=== PATIENT | female | born 1965 | race Caucasian/White ===

== ENCOUNTER 2020-01-03 07:15 | Outpatient (CLI) | payer OTHER, SELFPAY ==
--- NOTE | ~2020-01-03 | MM_ITS ---
EXAMINATION: MM screening [facility] BI w marianne HISTORY: Screening mammogram TECHNIQUE: Craniocaudal and mediolateral oblique 3-D tomosynthesis images were obtained and synthetic 2-D images were generated. Bilateral rotated lateral cc views. .CAD analysis was submitted and inter preted. COMPARISON: 12/28/2018, 11/24/2017, 11/11/2016 bilateral digital screening mammogram examinations BREAST PARENCHYMAL COMPOSITION: There are scattered areas of fibroglandular density. FINDINGS: There is no evidence of suspicious mass, calcification, or architectural distortion to sugg est malignancy in either breast. There has been no suspicious interval change. IMPRESSION: 1. No mammographic evidence of malignancy. 2. Recommend routine screening mammography in one year. BI-RADS Category 1: Negative Reviewed, dictated and finalized at location A.
== END 2020-01-03 07:16 | disposition home or self-care (01) ==
LOC: ANHIMG 07:20
PROVIDERS: PCP Family Medicine; Visit Provider Student in an Organized Health Care Education/Training Program
DX: Z12.31 Encounter for screening mammogram for malignant neoplasm of breast (principal)
CPT/HCPCS: 77063; 77067

== ENCOUNTER 2020-02-01 10:51 | Outpatient (CLI) | payer OTHER, SELFPAY ==
[2020-02-01 11:25] LABS: Basophils Percent Auto 0.6 % (0.2-1.2); Eosinophils Absolute Auto 0.1 K/mm3 (0-0.3); Eosinophils Percent Auto 1.6 % (0-4.4); Hematocrit 38.8 % (37.0-47.0); Immature Granulocyte Absolute 0.01 K/mm3 (0.00-0.031); Immature Granulocyte Percent A 0.2 % (0-0.5); Lymphocytes Absolute Auto 1.99 K/mm3 (0.9-3.2); Lymphocytes Percent Auto 39.9 % (18.3-44.2); Mean Corpuscular HGB Conc 33.5 g/dl (32-36); Mean Corpuscular Hemoglobin 32.2 pg (26-34); Mean Platelet Volume 10.1 fl (7.4-10.4); Monocytes Absolute Auto 0.4 K/mm3 (0.1-0.6); Neutrophils Absolute Auto 2.5 K/mm3 (1.3-6.7); Neutrophils Percent Auto 50.7 % (45.5-73.1); Platelet Count Result 232 k/mm3 (150-375); Red Blood Count 4.04 M/mm3 (4.2-5.4)
[2020-02-01 11:36] LABS: Alanine Aminotransferase 18 U/L (4-35); Albumin Level 4.3 g/dL (3.5-5.1); Alkaline Phosphatase 68 U/L (38-126); Aspartate Amino Transferase 23 U/L (14-36); Bilirubin,Total 0.3 mg/dL (0.2-1.3); Blood Urea Nitrogen 13 mg/dL (7-17); Calcium 9.1 mg/dL (8.4-10.2); Carbon Dioxide 25 mmol/L (22-30); Chloride 108 mmol/L (98-107); Estimated Glomerular Filt Rate > 60; Glucose 119 mg/dL (65-105); Sodium 141 mmol/L (137-145)
[2020-02-01 11:49] LABS: Iron 83 ug/dL (37-170)
[2020-02-01 11:58] LABS: Percent Iron Saturation 27 % (20-50)
== END 2020-02-01 10:52 | disposition home or self-care (01) ==
LOC: ANHLAB 10:53
PROVIDERS: Visit Provider Internal Medicine Hematology & Oncology
DX: E83.110 Hereditary hemochromatosis (principal)
CPT/HCPCS: 36415; 80053; 82728; 83540; 83550; 85025

== ENCOUNTER 2020-06-26 14:45 | Outpatient (CLI) | payer OTHER, SELFPAY ==
--- NOTE | ~2020-06-26 | CT_ITS ---
EXAMINATION: CT soft tissue neck w con DATE: 06/26/2020 15:23 INDICATION: Calculus of tonsil. TECHNIQUE: Computed tomography (CT) of the neck was performed with 75 mL Omnipaque-350 intravenous co ntrast. Automated exposure control and iterative reconstruction technique were employed. The dose-daya gth product was 469.26 mGy-cm. COMPARISON: None FINDINGS: There are no pathologically enlarged lymph nodes. There is a 3 mm nodule in right thyroid l obe, likely not clinically significant. There is no visible plaque in the proximal internal carotid a rteries. There are mucous retention cysts in the maxillary sinuses. The adenoids and palatine and ruthann gual tonsils are normal. No tonsillar calcifications. The major salivary glands are normal. No sialol ith. There is moderate stenosis of proximal left subclavian artery. There is mild thoracic spondylosi s. IMPRESSION: 1. No tonsillar calcification. 2. Moderate stenosis of proximal left subclavian artery, which may be a cause of subclavian steal syn drome. Reviewed, dictated and finalized at location A. ESS ENGINEER IMPRESSION: 1. No tonsillar calcification. 2. Moderate stenosis of proximal left subclavian artery, which may be a cause o f subclavian steal syndrome.
== END 2020-06-26 14:46 | disposition home or self-care (01) ==
LOC: ANHIMG 14:53
PROVIDERS: PCP Family Medicine; Visit Provider Otolaryngology
DX: J39.2 Other diseases of pharynx (principal); M47.814 Spondylosis without myelopathy or radiculopathy, thoracic region; J34.1 Cyst and mucocele of nose and nasal sinus; E04.1 Nontoxic single thyroid nodule; I77.1 Stricture of artery
CPT/HCPCS: 70491; Q9967

== ENCOUNTER → 2020-07-20 17:04 | Outpatient (CLI) | payer OTHER, SELFPAY ==
--- NOTE | ~2020-07-20 | XR_ITS ---
EXAMINATION: XR shoulder RT min 2V INDICATION: Right shoulder pain TECHNIQUE: Four views of the right shoulder are submitted. COMPARISON: None FINDINGS: Normal alignment. No fracture. There is mild glenohumeral and acromioclavicular joint osteo arthritis. Soft tissues are unremarkable. IMPRESSION: 1. No acute osseous abnormality. Reviewed, dictated and finalized at location A. LIANCE REPRESENTATIVE
== END ==
PROVIDERS: PCP Family Medicine; Visit Provider Nurse Practitioner Family
DX: M19.011 Primary osteoarthritis, right shoulder (principal)
CPT/HCPCS: 73030

== ENCOUNTER 2020-07-31 13:34 | Outpatient (CLI) | payer OTHER, SELFPAY ==
--- NOTE | ~2020-07-31 | US_ITS ---
EXAMINATION: US carotid duplex BI DATE: 07/31/2020 15:23 INDICATION: Left subclavian artery stenosis. TECHNIQUE: Grayscale, color Doppler, and pulsed Doppler images of the cervical carotid arteries were obtained. The degree of vessel stenosis is placed in one of the following categories: normal, <50%, 5 0-69%, >=70% but less than near-occlusion, near-occlusion, or total occlusion. Note that percent sten osis relative to normal distal artery lumen diameter is indirectly measured from velocity measurement s as described by James, et al. Radiology 2003; 229:340-346. COMPARISON: CT neck 06/26/2020 FINDINGS: RIGHT: The right common carotid artery (CCA) peak systolic velocity (PSV) is 96 cm/s. The right internal car otid artery (ICA) PSV is 92 cm/s. The right ICA end-diastolic velocity (EDV) is 35 cm/s. The right IC A/CCA PSV ratio is 1.0. Grayscale and color Doppler images yield an estimate of <50% diameter reducti on from plaque in the ICA. There is antegrade flow in the right vertebral artery. LEFT: The left CCA PSV is 69 cm/s. The left ICA PSV is 115 cm/s. The left ICA EDV is 44 cm/s. The left ICA/ CCA PSV ratio is 1.7. Grayscale and color Doppler images yield an estimate of <50% diameter reduction from plaque in the ICA. There is antegrade flow in the left vertebral artery. IMPRESSION: 1. <50% stenosis in the right internal carotid artery. 2. <50% stenosis in the left internal carotid artery. 3. Antegrade flow in the vertebral arteries. Reviewed, dictated and finalized at location A. MILL SUPERVISOR
--- NOTE | 2020-07-31 13:54 | ECHO_ITS ---
Patient Info Name: Ellen Mayes Age: 55 years : 1965 Gender: Female Ht: 65 in Wt: 143 lbs BSA: 1.73 m2 HR: 75 bpm BP: 143 / 90 mmHg Technical Quality: Good Exam Date: 07/31/2020 2:11 PM Exam Location: [facility] Patient Status: Outpatient Admit Date: 07/31/2020 Staff Ordering Physician: Merced Trejo Agronomy Advisor: Lisa Cash RDCS Attending Provider: Merced Trejo Referring Physician: Maya HACKETT; Exam Type: CA echo doppler color flow Study Info Indications - STRICTURE OF ARTERY Complete two-dimensional, color flow and Doppler transthoracic echocardiogram is performed. Summary 1. Complete two-dimensional, color flow and Doppler transthoracic echocardiogram is performed. 2. Left ventricular chamber dimension is normal. 3. Left ventricular systolic function is normal, estimated at 65-70%. 4. The left ventricular diastolic function is grade I diastolic dysfunction. 5. E/e' 9 is minimally elevated. 6. Left atrial chamber dimension is mildly enlarged. 7. There is trace mitral valve regurgitation. 8. There is trace tricuspid valve regurgitation. 9. No pulmonary hypertension, estimated pulmonary arterial systolic pressure is 26 mmHg. 10. There is trace pulmonic regurgitation. Left Ventricle E/e' 9 is minimally elevated. Left ventricular chamber dimension is normal. Left ventricular systolic function is normal, estimated at 65-70%. The left ventricular diastolic function is grade I diastolic dysfunction. Right Ventricle Right ventricular chamber dimension is normal. Right ventricular systolic function is normal. Left Atria Left atrial chamber dimension is mildly enlarged. Right Atria Right atrial chamber dimension is normal. Aortic Valve The aortic valve is trileaflet. There is no aortic valve stenosis. There is no aortic valve regurgitation. Pulmonic Valve There is trace pulmonic regurgitation. Mitral Valve There is no mitral valve stenosis. There is trace mitral valve regurgitation. Tricuspid Valve There is trace tricuspid valve regurgitation. No pulmonary hypertension, estimated pulmonary arterial systolic pressure is 26 mmHg. Pericardium/Pleural There is no pericardial effusion. Inferior Vena Cava Normal inferior vena cava with >50% collapse upon inspiration consistent with normal right atrial pressure, 5 mmHg. Aorta The aortic root size at the sinus of Valsalva is normal. Left Ventricular Outflow Tract Name Value Normal LVOT 2D LVOT Diameter 2.0 cm LVOT Doppler LVOT Peak Gradient 6 mmHg LVOT Mean Gradient 3 mmHg LVOT VTI 24 cm LVOT VTI/AV VTI Ratio 1.0 LVOT Stroke Volume 75 ml LVOT CO 14.9 l/min LVOT CI 8.6 l/min/m2 Pulmonic Valve Name Value Normal
== END 2020-07-31 13:35 | disposition home or self-care (01) ==
LOC: ANHCARD 13:35
PROVIDERS: PCP Family Medicine; Visit Provider Nurse Practitioner Family
DX: I77.1 Stricture of artery (principal); E78.1 Pure hyperglyceridemia; I65.23 Occlusion and stenosis of bilateral carotid arteries
CPT/HCPCS: 93306; 93880

== ENCOUNTER → 2020-08-21 10:05 | Outpatient (CLI) | payer OTHER, SELFPAY ==
--- NOTE | ~2020-08-21 | US_ITS ---
EXAMINATION: US pelvic complete w TV DATE: 08/21/2020 10:27 INDICATION: Postmenopausal bleeding TECHNIQUE: Multiple transabdominal and endovaginal sonographic images of the pelvis were obtained. COMPARISON: None. FINDINGS: The uterus measures 7.3 x 3.1 x 4.9 cm. The endometrial complex measures 1-2 mm in thickness. Again seen is a 2.0 x 1.5 x 1.3 cm hypoechoic likely fibroid at the posterior body of the uterus. The bilat eral ovaries are not visualized. There is no free fluid in the pelvis. IMPRESSION: 1. Unchanged 2 cm uterine fibroid. 2. Endometrial complex measures 1-2 mm in thickness suggesting postmenopausal endometrial atrophy as etiology for bleeding. Reviewed, dictated and finalized at location B. PROFESSIONAL IMPRESSION: 1. Unchanged 2 cm uterine fibroid. 2. Endometrial complex measures 1-2 mm in thickness suggesting postmenopausal e ndometrial atrophy as etiology for bleeding.
== END ==
PROVIDERS: PCP Family Medicine; Visit Provider Student in an Organized Health Care Education/Training Program
DX: Z78.0 Asymptomatic menopausal state (principal); D25.9 Leiomyoma of uterus, unspecified
CPT/HCPCS: 76830; 76856

== ENCOUNTER 2020-09-25 08:54 | Outpatient (CLI) | payer OTHER, SELFPAY ==
[2020-09-25 09:22] LABS: Cholesterol 234 mg/dL (0-200); HDL Direct 66 mg/dL; Triglycerides 127 mg/dL (<150)
[2020-09-25 09:33] LABS: LDL Cholesterol Direct 131 mg/dL
== END 2020-09-25 08:55 | disposition home or self-care (01) ==
PROVIDERS: PCP Family Medicine; Visit Provider Nurse Practitioner Family
DX: E78.1 Pure hyperglyceridemia (principal)
CPT/HCPCS: 36415; 80061

== ENCOUNTER 2020-11-20 09:32 | Outpatient (CLI) | payer OTHER, SELFPAY ==
--- NOTE | ~2020-11-20 | CT_ITS ---
EXAMINATION: CTA chest EXAM DATE: 11/20/2020 10:07 INDICATION: Subclavian artery stenosis on neck CT. Carotid ultrasound demonstrate antegrade vertebral artery flow bilaterally. TECHNIQUE: Spiral CT of the chest following intravenous injection of 100 mL Omnipaque 350. Axial, co robles and sagittal images of the chest were reviewed. Coronal maximum intensity pixel images of ches t reviewed. Maximum intensity projection 3-D reconstructions of the aorta were created by the technol sydnee on dedicated workstation. NASCET comparable standard used to assess the degree of arterial sten osis. The dose-length product (DLP) for this examination was 182.58 mGy-cm. The exposure was tailor ed according to patient size (auto mA exposure control), and iterative reconstruction (ASIR) was used as additional dose reduction technique. Correlation is made to neck CT 06/26/2020. FINDINGS: There is atherosclerosis, noncalcified plaque at the origin of the left subclavian artery, causing 45% stenosis. There is a split left vertebral artery, before they join at the cervical region , one artery arising from the left subclavian and the other from the aortic arch. The right subclavia n artery and imaged portions of the common carotid artery is normal. No aortic dissection or central pulmonary emboli. Lungs are clear. There are no pleural or pericardial effusions. Tracheobronchial tree is patent. There is no mediastinal, hilar or axillary lymphadenopathy. There is no pneumothorax. Heart musa l in size. No evidence of coronary arterial calcification. Possible gallbladder polyp measuring up to about 1 cm along the anterior wall. There is mild thoracic spondylosis without osteoblastic or o steolytic lesions identified. IMPRESSION: 1. Left subclavian origin stenosis of 45%. 2. Possible gallbladder polyp; consider right upper quadrant sonogram. Reviewed, dictated and finalized at location A.
== END 2020-11-20 09:33 | disposition home or self-care (01) ==
PROVIDERS: PCP Family Medicine; Visit Provider Internal Medicine Cardiovascular Disease
DX: I77.1 Stricture of artery (principal)
CPT/HCPCS: 71275; Q9967

== ENCOUNTER → 2021-01-08 12:18 | Outpatient (CLI) | payer OTHER, SELFPAY ==
--- NOTE | ~2021-01-08 | MM_ITS ---
EXAMINATION: MM screening [facility] BI w marianne HISTORY: Screening mammogram TECHNIQUE: Craniocaudal and mediolateral oblique 3-D tomosynthesis images were obtained and synthetic 2-D images were generated. CAD analysis was submitted and interpreted. COMPARISON: 01/03/2020, 12/28/2018, 11/24/2017 BREAST PARENCHYMAL COMPOSITION: There are scattered areas of fibroglandular density. FINDINGS: There is no evidence of suspicious mass, calcification, or architectural distortion to sugg est malignancy in either breast. There has been no suspicious interval change. IMPRESSION: 1. No mammographic evidence of malignancy. 2. Recommend routine screening mammography in one year. BI-RADS Category 1: Negative Reviewed, dictated and finalized at location A.
== END ==
PROVIDERS: Visit Provider Student in an Organized Health Care Education/Training Program
DX: Z12.31 Encounter for screening mammogram for malignant neoplasm of breast (principal)
CPT/HCPCS: 77063; 77067

== ENCOUNTER 2021-01-29 13:53 | Outpatient (CLI) | payer OTHER, SELFPAY ==
[2021-01-29 14:16] LABS: Basophils Percent Auto 0.6 % (0.2-1.2); Eosinophils Absolute Auto 0.1 K/mm3 (0-0.3); Eosinophils Percent Auto 1.3 % (0-4.4); Hematocrit 40.9 % (37.0-47.0); Hemoglobin 13.7 g/dL (12.0-15.0); Immature Granulocyte Absolute 0.02 K/mm3 (0.00-0.031); Immature Granulocyte Percent A 0.4 % (0-0.5); Lymphocytes Absolute Auto 2.04 K/mm3 (0.9-3.2); Lymphocytes Percent Auto 38.2 % (18.3-44.2); Mean Corpuscular HGB Conc 33.5 g/dl (32-36); Mean Corpuscular Hemoglobin 31.4 pg (26-34); Mean Corpuscular Volume 93.8 fl (80-100); Mean Platelet Volume 10.1 fl (7.4-10.4); Monocytes Absolute Auto 0.5 K/mm3 (0.1-0.6); Monocytes Percent Auto 9.4 % (2.6-8.5); Neutrophils Absolute Auto 2.7 K/mm3 (1.3-6.7); Neutrophils Percent Auto 50.1 % (45.5-73.1); Platelet Count Result 227 k/mm3 (150-375); Red Blood Count 4.36 M/mm3 (4.2-5.4); Red Cell Distribution Width 12.7 % (11.5-14.5); White Blood Count 5.3 K/mm3 (4.5-10.0)
[2021-01-29 15:40] LABS: Iron 100 ug/dL (37-170)
[2021-01-29 15:41] LABS: Alanine Aminotransferase 21 U/L (4-35); Albumin Level 4.7 g/dL (3.5-5.1); Alkaline Phosphatase 70 U/L (38-126); Anion Gap 7 mmol/L (8-16); Aspartate Amino Transferase 26 U/L (14-36); Bilirubin,Total 0.4 mg/dL (0.2-1.3); Blood Urea Nitrogen 16 mg/dL (7-17); Calcium 9.8 mg/dL (8.4-10.2); Carbon Dioxide 26 mmol/L (22-30); Chloride 105 mmol/L (98-107); Estimated Glomerular Filt Rate > 60; Glucose 91 mg/dL (65-105); Potassium 4.4 mmol/L (3.4-5.0); Sodium 138 mmol/L (137-145)
[2021-01-29 15:50] LABS: Percent Iron Saturation 31 % (20-50)
== END 2021-01-29 13:54 | disposition home or self-care (01) ==
LOC: ANHLAB 13:57
PROVIDERS: Visit Provider Internal Medicine Hematology & Oncology
DX: E83.110 Hereditary hemochromatosis (principal)
CPT/HCPCS: 36415; 80053; 82728; 83540; 83550; 85025

== ENCOUNTER 2021-07-10 08:14 | Outpatient (CLI) | payer OTHER, SELFPAY ==
[2021-07-10 09:08] LABS: Cholesterol 185 mg/dL (0-200); HDL Direct 86 mg/dL; Triglycerides 96 mg/dL (<150)
[2021-07-10 09:21] LABS: LDL Cholesterol Direct 83 mg/dL
== END 2021-07-10 08:15 | disposition home or self-care (01) ==
PROVIDERS: PCP Family Medicine; Visit Provider Internal Medicine Cardiovascular Disease
DX: E78.5 Hyperlipidemia, unspecified (principal)
CPT/HCPCS: 36415; 80061

== ENCOUNTER 2022-02-04 07:23 | Outpatient (CLI) | payer OTHER, SELFPAY ==
--- NOTE | ~2022-02-04 | MM_ITS ---
EXAMINATION: MM screening [facility] BI w marianne HISTORY: Screening mammogram TECHNIQUE: Craniocaudal and mediolateral oblique 3-D tomosynthesis images were obtained and synthetic 2-D images were generated. CAD analysis was submitted and interpreted. COMPARISON: 01/08/2021, 01/03/2020, 12/28/2018 BREAST PARENCHYMAL COMPOSITION: There are scattered areas of fibroglandular density. FINDINGS: There is no suspicious mass, calcification, or architectural distortion to suggest malignan cy in either breast. There has been no suspicious interval change. IMPRESSION: 1. No mammographic evidence of malignancy. 2. Recommend routine screening mammography in one year. BI-RADS Category 1: Negative Reviewed, dictated and finalized at location A.
== END 2022-02-04 07:24 | disposition home or self-care (01) ==
LOC: ANHIMG 07:25
PROVIDERS: PCP Family Medicine; Visit Provider Student in an Organized Health Care Education/Training Program
DX: Z12.31 Encounter for screening mammogram for malignant neoplasm of breast (principal)
CPT/HCPCS: 77063; 77067

== ENCOUNTER 2022-03-04 09:05 | Outpatient (CLI) | payer OTHER, SELFPAY ==
[2022-03-04 09:33] LABS: Basophils Percent Auto 0.7 % (0.2-1.2); Eosinophils Absolute Auto 0.1 K/mm3 (0-0.3); Eosinophils Percent Auto 1.4 % (0-4.4); Hematocrit 42.1 % (37.0-47.0); Immature Granulocyte Absolute 0.01 K/mm3 (0.00-0.031); Immature Granulocyte Percent A 0.2 % (0-0.5); Lymphocytes Absolute Auto 1.69 K/mm3 (0.9-3.2); Lymphocytes Percent Auto 29.8 % (18.3-44.2); Mean Corpuscular HGB Conc 33.3 g/dl (32-36); Mean Corpuscular Hemoglobin 31.2 pg (26-34); Mean Corpuscular Volume 93.8 fl (80-100); Mean Platelet Volume 9.8 fl (7.4-10.4); Monocytes Absolute Auto 0.5 K/mm3 (0.1-0.6); Monocytes Percent Auto 7.9 % (2.6-8.5); Neutrophils Absolute Auto 3.4 K/mm3 (1.3-6.7); Platelet Count Result 250 k/mm3 (150-375); Red Blood Count 4.49 M/mm3 (4.2-5.4); Red Cell Distribution Width 11.9 % (11.5-14.5); White Blood Count 5.7 K/mm3 (4.5-10.0)
[2022-03-04 11:38] LABS: Iron 77 ug/dL (37-170)
[2022-03-04 11:39] LABS: Alanine Aminotransferase 27 U/L (6-35); Albumin Level 4.7 g/dL (3.5-5.1); Alkaline Phosphatase 74 U/L (38-126); Anion Gap 9 mmol/L (8-16); Aspartate Amino Transferase 27 U/L (14-36); Bilirubin,Total 0.4 mg/dL (0.2-1.3); Blood Urea Nitrogen 13 mg/dL (7-17); Calcium 9.7 mg/dL (8.4-10.2); Carbon Dioxide 25 mmol/L (22-30); Chloride 105 mmol/L (98-107); Estimated Glomerular Filt Rate > 60; Glucose 112 mg/dL (65-110); Potassium 3.8 mmol/L (3.4-5.0); Sodium 139 mmol/L (137-145)
[2022-03-04 11:48] LABS: Percent Iron Saturation 24 % (20-50)
== END 2022-03-04 09:06 | disposition home or self-care (01) ==
LOC: ANHLAB 09:06
PROVIDERS: PCP Family Medicine; Visit Provider Internal Medicine Hematology & Oncology
DX: E83.110 Hereditary hemochromatosis (principal)
CPT/HCPCS: 36415; 80053; 82728; 83540; 83550; 85025

== ENCOUNTER → 2022-03-18 07:59 | Outpatient (CLI) | payer OTHER, SELFPAY ==
--- NOTE | ~2022-03-18 | DEXA_ITS ---
Bone Density Report Name: RIK RODRIGUEZ Age: 56 Sex: Female Ethnicity: White Date of : 1965 Indication: postmenopausal; screening for osteoporosis; height loss; Referring Provider: Naomi Velasquez Study: Bone densitometry was performed. Exam Date: March 18, 2022 Accession number: [id number] Bone Density: Region BMD T-score Z-score Classification AP Spine (L1-L4) 1.152 1.0 2.2 Normal Femoral Neck (Left) 0.691 -1.4 -0.3 Osteopenia Total Hip (Left) 0.824 -1.0 -0.2 Normal Femoral Neck (Right) 0.731 -1.1 0.1 Osteopenia Total Hip (Right) 0.788 -1.3 -0.5 Osteopenia Total Hip Mean 0.806 -1.2 -0.4 Osteopenia World Health Organization criteria for BMD impression classify patients as: Normal (T-score at or above -1.0), Osteopenia (T-score between -1.0 and -2.5), or Osteoporosis (T-score at or below -2.5). 10-year Fracture Risk(1): Major Osteoporotic Fracture 7.0% Hip Fracture 0.5% Reported Risk Factors: [place] (), Neck BMD=0.691, BMI=24.7 (1) FRAX(R) Version 3.08. Fracture probability calculated for an untreated patient. Fracture probability may be lower if the patient has received treatment. Previous Exams: Region Exam Age BMD T-score BMD Change BMD Change Date g/cm2 vs Baseline vs Previous AP Spine(L1-L4) 03/18/2022 56 1.152 1.0 -0.048* -0.048* 12/23/2005 40 1.200 1.4 Total Hip(Left) 03/18/2022 56 0.824 -1.0 -0.049* -0.049* 12/23/2005 40 0.873 -0.6 Total Hip(Right) 03/18/2022 56 0.788 -1.3 -0.038* -0.038* 12/23/2005 40 0.827 -0.9 *Denotes significance at 95% confidence level, LSC for AP Spine = 0.022 g/cm2, LSC for Total Hip = 0.027 g/cm2 Clinical Information Provided by Patient: Has used the following medications: Vitamin D Patient maximum height was 65.5 Menopause Age: 52 Drinks caffeinated beverages Onset of menses at age 12 Number of children 3 Impression: The patient has low bone mass, based on the Left Femoral Neck T-score. The patient has an estimated ten-year risk of hip fracture of 0.5% and an estimated ten-year risk of major fracture of 7%, based on the WHO FRAX algorithm. The BMD for the AP Spine(L1-L4) decreased, changing by -0.048 since the last DXA exam. The BMD for the Total Hip(Left) decreased, changing by -0.049 since the last DXA exam. The BMD for the Total Hip(Right) decreased, changing by -0.038 since the last DXA exam. Disc
== END ==
PROVIDERS: PCP Family Medicine; Visit Provider Student in an Organized Health Care Education/Training Program
DX: Z13.820 Encounter for screening for osteoporosis (principal); M85.852 Other specified disorders of bone density and structure, left thigh; M85.851 Other specified disorders of bone density and structure, right thigh
CPT/HCPCS: 77080

== ENCOUNTER → 2023-02-10 07:11 | Outpatient (CLI) | payer OTHER, SELFPAY ==
--- NOTE | ~2023-02-10 | MM_ITS ---
EXAMINATION: MM screening jhon BI w marianne HISTORY: Screening TECHNIQUE: Craniocaudal and mediolateral oblique 3-D tomosynthesis images were obtained and synthetic 2-D images were generated. CAD analysis was submitted and interpreted. COMPARISON: Comparison to multiple prior studies sequentially, with oldest reviewed study dated 11/11. BREAST PARENCHYMAL COMPOSITION: Breast composed of scattered areas of fibroglandular density FINDINGS: There is no evidence of suspicious mass, calcification, or architectural distortion to sugg est malignancy in either breast. There has been no suspicious interval change. IMPRESSION: 1. No mammographic evidence of malignancy. 2. Recommend routine screening mammography in one year. BI-RADS Category 1: Negative Reviewed, dictated and finalized at location A.
== END ==
PROVIDERS: PCP Obstetrics & Gynecology; Visit Provider Obstetrics & Gynecology
DX: Z12.31 Encounter for screening mammogram for malignant neoplasm of breast (principal)
CPT/HCPCS: 77063; 77067

== ENCOUNTER 2023-02-17 08:35 | Outpatient (CLI) | payer OTHER, SELFPAY ==
[2023-02-17 08:51] LABS: Basophils Percent Auto 0.5 % (0.2-1.2); Eosinophils Absolute Auto 0.1 K/mm3 (0-0.3); Eosinophils Percent Auto 1.8 % (0-4.4); Hematocrit 41.8 % (37.0-47.0); Hemoglobin 14.2 g/dL (12.0-15.0); Immature Granulocyte Absolute 0.02 K/mm3 (0.00-0.031); Immature Granulocyte Percent A 0.4 % (0-0.5); Lymphocytes Absolute Auto 1.87 K/mm3 (0.9-3.2); Lymphocytes Percent Auto 33.8 % (18.3-44.2); Mean Corpuscular Hemoglobin 32.6 pg (26-34); Mean Corpuscular Volume 95.9 fl (80-100); Mean Platelet Volume 9.8 fl (7.4-10.4); Monocytes Absolute Auto 0.4 K/mm3 (0.1-0.6); Monocytes Percent Auto 7.4 % (2.6-8.5); Neutrophils Absolute Auto 3.1 K/mm3 (1.3-6.7); Neutrophils Percent Auto 56.1 % (45.5-73.1); Platelet Count Result 247 k/mm3 (150-375); Red Blood Count 4.36 M/mm3 (4.2-5.4); Red Cell Distribution Width 11.9 % (11.5-14.5); White Blood Count 5.5 K/mm3 (4.5-10.0)
[2023-02-17 10:05] LABS: Iron 75 ug/dL (37-170)
[2023-02-17 10:09] LABS: Alanine Aminotransferase 33 U/L (6-35); Albumin Level 4.8 g/dL (3.5-5.1); Alkaline Phosphatase 81 U/L (38-126); Anion Gap 9 mmol/L (8-16); Aspartate Amino Transferase 30 U/L (14-36); Bilirubin,Total 0.4 mg/dL (0.2-1.3); Blood Urea Nitrogen 16 mg/dL (7-17); Calcium 9.5 mg/dL (8.4-10.2); Carbon Dioxide 26 mmol/L (22-30); Chloride 105 mmol/L (98-107); Estimated Glomerular Filt Rate > 60; Glucose 101 mg/dL (65-110); Potassium 4.5 mmol/L (3.4-5.0); Sodium 140 mmol/L (137-145)
[2023-02-17 10:20] LABS: Percent Iron Saturation 21 % (20-50)
== END 2023-02-17 08:36 | disposition home or self-care (01) ==
LOC: ANHLAB 08:37
PROVIDERS: PCP Family Medicine; Visit Provider Internal Medicine Hematology & Oncology
DX: E83.110 Hereditary hemochromatosis (principal)
CPT/HCPCS: 36415; 80053; 82728; 83540; 83550; 85025

== ENCOUNTER 2023-06-12 01:09 | Day surgery (SDC) | payer OTHER, SELFPAY ==
[2023-06-06 12:08] VITALS: BMI 25.0
--- NOTE | 2023-06-06 12:13 | PC.NURSE ---
Report to the Outpatient Waiting Room, entrance under the green pavilion located off [facility], at time 0600 on date 06/12/23. Planned Procedure Time: 0730. Time changes happen often and if your time is changed the preop area will call you the afternoon before. - You and your visitor will be asked to self-screen and do not enter if you have any COVID symptoms. - A mask is optional within the hospital at this time. Patients may have clear liquids (water, carbonated beverages, clear teas, apple juice) until 3 hours prior to surgery with a maximum of 20 ounces. - No food from midnight until time of surgery Take the following medications with a SIP of water the morning of surgery: NONE DO NOT STOP ANY OF YOUR OTHER PRESCRIPTION MEDICATIONS PRIOR TO SURGERY ?EXCEPT THE FOLLOWING Medications to discontinue per physician: VITAMINS/SUPPLEMENTS Date to take last dose: 06/08/23 Please no make-up, nail french, hairspray, perfume, deodorant, or body powder the day of surgery. No jewelry (including any body piercings) or valuables the day of surgery, leave them at home. Please take a shower or bath the night before, or the morning of, surgery with an antibacterial soap. Wear comfortable, loose fitting clothing. - Jewelry must be removed prior to entering the operating room. Rings and piercings that are not removed may be cut off. - The hospital will not accept responsibility for valuables. - Please leave all valuables, including medications, at home the day of surgery. If you are going home after surgery, a licensed pile driver operator helper must drive you home. - NO public transportation without another adult if you receive anesthesia. - We recommend that an adult stay with you for 24 hours following discharge. - We also recommend that you do not drive, make important decision, drink alcoholic beverages, or take any drugs that were not prescribed by your health care provider for at least 24 hours after your discharge time. Follow any additional instructions given to you from your surgeon. If you or anyone in your household have experienced Covid symptoms in the past week, please notify your surgeon or the nurse liaison at the phone number below for possible testing. Telephone instructions given to PT - RIK RODRIGUEZ and asked if any additional questions and then verbalized understanding. Patient advised to call surgeon office or pre surgery nurse liaison [phone] if any additional questions.
[2023-06-12 06:30] VITALS: BP 144/73; PULSE 71; RESP 14; TEMP 36.7; O2SAT 99
[2023-06-12] MEDS: KETOROLAC 15 MG/ML VIAL (*BKC) IV PUSH (06:40)
[2023-06-12] MEDS: ACETAMINOPHEN 500 MG TABLET 1000 MG PO (06:40)
--- NOTE | 2023-06-12 07:09 | WPDHPUPDATE1 ---
History and Physical Update Update Date/Time: 06/12/23 07:09 History and Physical has been reviewed, including an updated exam of the patient. There are NO changes in the patient's condition. Risks, benefits, and alternatives have been discussed and questions answered. Patient agrees to proceed with procedure.
--- NOTE | 2023-06-12 07:16 | WPDANESEPPF ---
Anes - Initial Pre Proc Eval Procedure: Operation Date: 06/12/23 07:30 Proposed Procedures p Left Third Trigger Finger Release - Igor Thornton MD Date/Time: 06/12/23 07:16 Surgeon: Igor Thornton MD Pre Op Diagnosis: Left third trigger finger Patient Data Age: 58 Gender: F Height: 1.65 m Weight: 68.05 kg Allergies Allergy/AdvReac Type Severity Reaction Status Date / Time No Known Allergies Allergy Verified 06/08/23 07:18 Home Medications Medication Instructions Recorded Confirmed Type cholecalciferol (vitamin D3) 25 25 mcg PO DAILY 08/07/20 06/08/23 History mcg (1,000 unit) capsule vitamin B complex (B 1 tablet PO DAILY 08/07/20 06/08/23 History Complex-Vitamin B12 tablet) rosuvastatin 20 mg tablet 20 mg PO HS 05/21/21 06/08/23 History tumeric 100 mg-syeda 150 mg-olive 1 cap PO DAILY 08/27/21 06/08/23 History 50 mg-oreg 150 mg-caprylate capsule aspirin 81 mg capsule 81 mg PO DAILY 05/17/22 06/08/23 History calcium carbonate 500 mg calcium 500 mg PO DAILY 05/17/22 06/08/23 History (1,250 mg) chewable tablet (Calcium 500) Patient hx anesthesia problems: none Family hx anesthesia problems: none Results Review: All pre-operative results and documents have been reviewed as part of the pre-operative evaluation. [facility] Past Medical History Medical History Abnormal blood level of iron Acid reflux Acute non-recurrent maxillary sinusitis BMI 23.0-23.9, adult BMI 24.0-24.9, adult Cellulitis and abscess of unspecified site Chronic cough Cystitis with hematuria Encounter for screening for malignant neoplasm of cervix Hemochromatosis High triglycerides Hyperlipidemia Need for tetanus booster Nodule of soft tissue Non-healing skin lesion Screening for colon cancer Spotting Trigger finger, left middle finger Vaginal delivery Surgical History Surgical History History of dilation and curettage [place] teeth removed Family History Family History Mother Hypertension Patient's mother is in good health Hyperlipidemia Father No problems noted. Sibling COPD (chronic obstructive pulmonary disease) Emphysema (subcutaneous) (surgical) resulting from a procedure Social History Social History Smoking status: Never smoker Second hand tobacco smoke exposure: No Alcohol intake: current Drinks per week: 3 Alcohol use details: WEEKENDS Substance use: never Substance use type: does not use Lack of Transportation: No Lack of Food: Never True Current Housing: I Have Housing Concerned About Future Housing: No Difficulty Paying Gas/Electric Bills: No Difficulty Paying for Meds: No Currently Unemployed: No Education: Master's Degree or Higher Difficulty w/ Childcare or Family Care: No Living arrangements: with family Occupation/Education: occupation Additional occupation/education comments: dentist Gender identity (if verbalized by the patient): Female Spiritual care concerns: No Anes - Eval Final PreProcedure Day of Procedure 06/12/23 07:16 Patient weight: normal Heart: regular rate and rhythm Lungs: clear to auscultation and normal air movement Airway: Mallampati scale class II Neurological: alert and oriented Last oral intake: >/= 8 hours ASA classification: II Emergent: no Anesthetic plan: proceed Anesthesia type and monitoring: general GIVS and standard monitoring Results Review: All pre-operative results and documents have been reviewed as part of the pre-operative evaluation. Informed Consent: The patient's anesthetic plan and its attendant risks and benefits were discussed with the patient/family/POA. Questions were solicited and answers provided to the satisfaction of the patient/family/POA.
[2023-06-12] MEDS: ceFAZolin 2 GM/D5W 50 ML 2 GM/50 ML BAG IVPB (07:30)
[2023-06-12] MEDS: BUPivacaine HCL 0.25% PF 30 ML VIAL 5 ML INFILTRATE (07:54)
[2023-06-12 07:59] VITALS: BP 106/63; PULSE 79; RESP 14; O2SAT 99
[2023-06-12] MEDS: LACTATED RINGERS 1,000 ML 30 ML IV CONT (07:59)
--- NOTE | 2023-06-12 08:06 | W.PM.PROC2 ---
Procedure Note - Detailed Date of Procedure 06/12/23 Pre-op Diagnosis Left third trigger finger Post-op Diagnosis Same Procedure Performed Left third trigger finger released Surgeon Igor Thornton MD Bag Making Machine Tender Raul Hartley Anesthesia MAC and Local Description of Procedure The patient was identified and proper site identified. She was taken to the operating room and transferred to the OR table placing supine taking care to pad the torso and extremities. IV sedation was administered. A nonsterile tourniquet was placed high on the left arm which was prepped and draped in the usual sterile fashion. Several cc of .25 % plain Marcaine was injected into the subcutaneous tissue over the A1 kina of the left third digit. The extremity was exsanguinated and the tourniquet was inflated to 200 mmHg remaining up for about 5 minutes. A longitudinal incision was made over the A1 kina. Subcutaneous tissue was bluntly dissected down to the kina while protecting the neurovascular bundles. The A1 kina was identified and then transected longitudinally in line with the incision and tendons. The tendons were delivered into the wound verifying the adequacy of the release. Hemostasis was carried out. The wound was irrigated with sterile saline. Skin edges were reapproximated with 4-0 nylon suture. Sterile dressing was applied. Tourniquet was released. She tolerated the procedure well and was transferred back to a cart, then taken to the recovery area in stable condition. There were no known intraoperative complications. Estimated blood loss was negligible. Perioperative antibiotics were administered. Estimated Blood Loss 0 Drains No Packing No Pathology None sent Complications No immediate complications Condition Stable Disposition Same day [facility] Billing Surgery - Charge Forward: Surgery Billing ([id number])
[2023-06-12 08:10] VITALS: O2SAT 100
[2023-06-12 08:25] VITALS: BP 139/84; PULSE 72; RESP 14; O2SAT 98
[2023-06-12 08:45] VITALS: BP 128/74; PULSE 63; RESP 14
== END 2023-06-12 08:54 | disposition home or self-care (01) ==
PROVIDERS: PCP Family Medicine; Visit Provider Orthopaedic Surgery
PROC: (CPT 26055; principal; 2023-06-12 07:30)
DX: M65.332 Trigger finger, left middle finger (principal); E78.5 Hyperlipidemia, unspecified; Z79.82 Long term (current) use of aspirin
CPT/HCPCS: 26055; A9270; J0690; J1100; J1885; J2250; J2405; J2704; J3010; J7120

== ENCOUNTER 2024-02-23 07:12 | Outpatient (CLI) | payer OTHER, SELFPAY ==
--- NOTE | ~2024-02-23 | MM_ITS ---
EXAMINATION: MM screening [facility] BI w marianne HISTORY: Screening TECHNIQUE: Craniocaudal and mediolateral oblique 3-D tomosynthesis images were obtained and synthetic 2-D images were generated. CAD analysis was submitted and interpreted. COMPARISON: Comparison to multiple prior studies sequentially, with oldest reviewed study dated 10/2017. BREAST PARENCHYMAL COMPOSITION: Not dense: There are scattered areas of fibroglandular density. FINDINGS: There is no evidence of suspicious mass, calcification, or architectural distortion to sugg est malignancy in either breast. There has been no suspicious interval change. IMPRESSION: 1. No mammographic evidence of malignancy. 2. Recommend routine screening mammography in one year. BI-RADS Category 1: Negative Reviewed, dictated and finalized at location B.
== END 2024-02-23 07:13 ==
LOC: MICIMG 07:13
PROVIDERS: PCP Family Medicine; Visit Provider Obstetrics & Gynecology
DX: Z12.31 Encounter for screening mammogram for malignant neoplasm of breast (principal)
CPT/HCPCS: 77063; 77067

== ENCOUNTER 2024-03-01 08:13 | Outpatient (CLI) | payer OTHER, SELFPAY ==
[2024-03-01 08:30] LABS: Basophils Percent Auto 0.8 % (0.2-1.2); Eosinophils Absolute Auto 0.1 K/mm3 (0-0.3); Eosinophils Percent Auto 2.1 % (0-4.4); Hematocrit 43.1 % (37.0-47.0); Hemoglobin 14.3 g/dL (12.0-15.0); Immature Granulocyte Absolute 0.02 K/mm3 (0.00-0.031); Immature Granulocyte Percent A 0.4 % (0-0.5); Lymphocytes Absolute Auto 1.73 K/mm3 (0.9-3.2); Lymphocytes Percent Auto 33.3 % (18.3-44.2); Mean Corpuscular HGB Conc 33.2 g/dl (32-36); Mean Corpuscular Hemoglobin 32.2 pg (26-34); Mean Corpuscular Volume 97.1 fl (80-100); Mean Platelet Volume 9.6 fl (7.4-10.4); Monocytes Absolute Auto 0.4 K/mm3 (0.1-0.6); Monocytes Percent Auto 7.5 % (2.6-8.5); Neutrophils Absolute Auto 2.9 K/mm3 (1.3-6.7); Neutrophils Percent Auto 55.9 % (45.5-73.1); Platelet Count Result 236 k/mm3 (150-375); Red Blood Count 4.44 M/mm3 (4.2-5.4); Red Cell Distribution Width 12.2 % (11.5-14.5); White Blood Count 5.2 K/mm3 (4.5-10.0)
[2024-03-01 13:33] LABS: Alanine Aminotransferase 30 U/L (6-35); Albumin Level 4.6 g/dL (3.5-5.1); Alkaline Phosphatase 75 U/L (38-126); Anion Gap 11 mmol/L (4-12); Aspartate Amino Transferase 28 U/L (14-36); Bilirubin,Total 0.3 mg/dL (0.2-1.3); Blood Urea Nitrogen 18 mg/dL (7-17); Calcium 9.4 mg/dL (8.4-10.2); Carbon Dioxide 24 mmol/L (22-30); Chloride 106 mmol/L (98-107); Estimated Glomerular Filt Rate > 60; Glucose 116 mg/dL (65-110); Potassium 4.1 mmol/L (3.4-5.0); Sodium 141 mmol/L (137-145)
[2024-03-01 22:05] LABS: Iron 87 ug/dL (37-170)
[2024-03-01 22:15] LABS: Percent Iron Saturation 25 % (20-50)
== END 2024-03-01 08:14 | disposition home or self-care (01) ==
LOC: ANHLAB 08:14
PROVIDERS: PCP Family Medicine; Visit Provider Internal Medicine Hematology & Oncology
DX: E83.110 Hereditary hemochromatosis (principal)
CPT/HCPCS: 36415; 80053; 82728; 83540; 83550; 85025

== ENCOUNTER 2025-02-07 00:18 | Day surgery (SDC) | payer OTHER, SELFPAY ==
[2025-02-03 15:24] VITALS: BMI 25.7
--- NOTE | 2025-02-03 15:38 | PC.NURSE ---
Report to the Outpatient Waiting Room, entrance under the green pavilion located off [facility], at time _12:30 on date _02/07/25 . Planned Procedure Time: _2:30 PM .? Time changes happen often and if your time is changed the preop area will call you the afternoon before. - You and your visitor will be asked to self-screen and do not enter if you have any COVID symptoms. Please call surgeon if you need to reschedule. - A mask is optional within the hospital at this time. Patients may have clear liquids (water, carbonated beverages, clear teas, apple juice) until 3 hours prior to surgery with a maximum of 20 ounces. - No food from midnight until time of surgery and no smoking, or chewing tobacco (or any form of nicotine). No chewing gum, candy or mints. - Infants may have breast milk until 4 hours before surgery, formula 6 hours prior to surgery. - Children will be allowed to drink immediately following surgery.? If applicable, please bring a bottle or sippy cup to assist with drinking. Juice, water, soda, and popsicles are readily available.? For infants on formula, please bring formula the day of surgery.? Pacifiers are allowed. Take only the following medications with a SIP of water on the morning of surgery: _N/A DO NOT STOP ANY OF YOUR OTHER PRESCRIPTION MEDICATIONS PRIOR TO SURGERY EXCEPT THE FOLLOWING Hold all vitamins and supplements for 3 days per anesthesiologist. Medications to discontinue per physician ___Aspirin and Vitamins stopped on the 01/31/25 per her office visit. Date to take last dose Please no make-up, nail peruvian, hairspray, perfume, deodorant, or body powder the day of surgery.? No jewelry (including any body piercings) or valuables the day of surgery, leave them at home.? Please take a shower or bath the night before, or the morning of, surgery with an antibacterial soap.? Wear comfortable, loose fitting clothing.? Children are encouraged to wear pajamas. - Jewelry must be removed prior to entering the operating room.? Rings and piercings that are not removed may be cut off. - The hospital will not accept responsibility for valuables.? - Please leave all valuables, including medications, at home the day of surgery. If you are going home after surgery, a licensed sales driver must drive you home.? - NO public transportation without another adult if you receive anesthesia. - We recommend that an adult stay with you for 24 hours following discharge. - We also recommend that you do not drive, make important decision, drink alcoholic beverages, or take any drugs that were not prescribed by your health care provider for at least 24 hours after your discharge time. For Pediatric surgeries, we recommend two adults accompany the child home. Follow any additional instructions given to you from your surgeon. Telephone instructions given to __Ellen and asked if any additional questions and then verbalized understanding. Patient advised to call surgeon office or pre surgery nurse liaison [phone] if any additional questions.
--- OUTSIDE RECORDS SUMMARY | 2025-02-07 00:21 | XMS_ITS | Referral Summary ---
Author Organization [facility] Address [address] [place] [address] Care Team Providers Care Instructional Coordinator Name Role Phone Tyrese Frost MD Primary Care Provider [phone] Encounters Date Type Department Care Team Description 01/27/2025 Telephone [facility] Cardiology [address] [place] [address] Arian Estes MD from Last 3 Months Allergies No known active allergies Medications vit D3-vit L-qtngrsnrv-gih s [phone] svrw-oqi-hc-mg tablet Take by mouth Active cyanocobalamin (Vitamin B-12) 100 mcg tabletIndicatio ns:Prevention of Vitamin B12 Deficiency Take 2.5 tablets (250 mcg total) by mouth daily Active TURMERIC-HERBAL COMPLEX NO.278 ORAL Take by mouth Active aspirin 81 mg enteric coated tablet Take 1 tablet (81 mg total) by mouth daily Active CALCIUM CITRATE ORAL Take 1 tablet by mouth daily 1200 Active rosuvastatin (CRESTOR) 20 mg tablet Take 1 tablet (20 mg total) by mouth daily 90 tablet 5 Active rosuvastatin (CRESTOR) 20 mg tablet Take 1 tablet (20 mg total) by mouth daily 90 tablet 3 4 01/28/20 25 Discontinu ed(Reorder ) Active Problems Problem Noted Date Diagnosed Date Myalgia 10/28/2022 Mixed hyperlipidemia 11/05/2021 Subclavian artery stenosis, left 10/23/2020 Hereditary hemochromatosis 10/23/2020 Diastolic dysfunction 10/23/2020 Resolved Problems Problem Noted Date Diagnosed Date Resolved Date 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 04/0 08/2020 Dyslipidemia 10/23/2020 11/05/2021 Social History Tobacco Use Types Packs/Day Years Used Date Smoking Tobacco: Never Smokeless Tobacco: Never Personal Safety Answer Date Recorded Getting School Help Needed Not on file 07/21 Comments Unknown Sex and Gender Information Value Date Recorded Sex Assigned at Not on file Legal Sex Female 11:53 PM [employer] Gender Identity Not on file Sexual Orientation Not on file Last Filed Vital Signs Vital Sign Reading Time Taken Comments Blood Pressure 130/80 12/22/2023 8:06 AM CDT Pulse 75 12/22/2023 8:06 AM CDT Temperature - - Respiratory Rate - - Oxygen Saturation 98% 12/22/2023 8:06 AM CDT Inhaled Oxygen Concentration - - Weight 69.4 kg (153 lb) 12/22/2023 8:06 AM CDT Height 165.1 cm (5' 5) 12/22/2023 8:06 AM CDT Body Mass Index 25.46 12/22/2023 8:06 AM CDT Plan of Treatment Not on file Insurance [facility] [facility] Care Teams Instructional Coordinator Relationship Specialty Start Date End Date Tyrese Frost MD PCP - General Family Medicine 04/30/21
--- OUTSIDE RECORDS SUMMARY | 2025-02-07 00:21 | XMS_ITS | Data Portability ---
Author Organization [facility] Address [address] [place] [address] Care Team Providers Care Approver Name Role Phone HARRISON JOHNS Primary Care Provider Assessment Encounter Date Assessment Date Assessment LastModified by Organization Details LastModified Time 03/03/2023 03/03/2023 Discussed possible causes of PMB, need for endometrial sampling. EMB done, will call with pathology Will schedule pelvic US [email or web address] Not available 03/03/2023 14:22:33 09/29/2023 09/29/2023 Annual gynecological exam performed. Patient will come back in a year unless there are new symptoms. [email or web address] Not available 09/29/2023 09:42:53 10/18/2024 10/18/2024 Annual gynecological exam performed. Patient will come back in a year unless there are new symptoms. [email or web address] Not available 10/18/2024 10:29:21 Plan of Treatment Reminders Order Date Submit Date Provider Last Modified By Organization Details Last Modified Time Details Appointments None recorded. Lab None recorded. Referral None recorded. Procedures None recorded. Surgeries None recorded. Imaging US, transvagina l 2023 024 [email or web address] [facility], [address], [place], [address], 10:26:26 US, pelvis 2022 023 [email or web address] [facility], [address], [place], [address], 3 14:34:04 US, transvagina l 2022 023 [email or web address] [address], [address], [place], [address], 3 14:34:04 Medication Orders None recorded. Patient TargetsNo targets recorded. Patient InstructionsNo instructions recorded. Reason for Referral None Reported. Results Created Date Observation Date Name Description Value Unit Range Abnormal Flag Note LastModifiedBy Organization Detail LastModifiedTime 03/03/20 23 03/03/2023 SURGI GUY PATHO LOGY surgical pathology SEE RESULT S BELOW CASE REPOR T: Surgi guy Patho logy Repor t Case: [id number] Autho richard yañez Provi priscila: Cande Dorantes MD Colle cted: 03/03 1601 Order ing Locat ion: [place] Patho logy Recei magda: 03/04 0156 Patho logis t: Jl Cedeno rd, MD Speci men: Endom etriu m, EMB FINAL DIAGN OSIS: Endom etriu m; biops y: Rare super ficia l strip s and fragm ents of benig n endom etria l linin g epith elium consi stent with atrop hy Elect demetrio yost by lJ Cedeno rd, MD on 2022 at 10:14 AM ----- ----- ----- ----- ----- ----- ----- ----- ----- ----- ----- ----- ----- ----- ----- ----- ----- ---- CLINI GUY INFOR MATDAHIANA N: n93.9 MICRO SCOPI C DESCR IPTIO N: A micro scopi c exami natio n was perfo rmed. GROSS DESCR IPTIO N: A. Endom etriu m. The speci men is label ed with the patie nt's name, александр blum cs and EMB. Recei magda in forma ruthann is a 0.5 x 0.3 x 0.1 [address] of mucus . The entir e speci men is submi tted in one casse tte. Gross ed by Clovis Dejesus on Not Available [facility] (Lab) [address], [place], [address], 03/06/2023 11:18:20 09/29/19 24 09/29/2023 IMAGE GUIDE D PAP AND HPV REGAR DLESS image guided Pap, HPV regardless of Pap result SEE RESULT S BELOW CASE REPOR T: Cytol ogy Gynec ologi guy Repor t Case: [id number] Autho rikristinn g Provi priscila: Alesha Pierce MD Colle cted: 09/28 0950 Order ing Locat ion: [place] Patho logy Recei magda: 10/01 0626 First Scree n: Estrella Daigle, CT Speci men: Scregurmeet johnsong Pap - Image d, Cervi x STATE MENT OF ADEQU ACY: Satis facto ry for evalu ation Trans forma tion zone compo nent prese nt FINAL DIAGN OSIS: Negat rajan for Intra epith elial Court n or Devorah montejo (NIL) . Elect demetrio campoverde d by Estrella Daigle, CT on 2023 at 10:23 AM ----- ----- ----- ----- ----- ----- ----- ----- ----- ----- ----- ----- ----- ----- ----- ----- ----- ---- HPV RESUL TS: HPV mRNA E6/E7 : No HPV mRNA Detec josé NOTE: This high risk HPV mRNA assay detec ts fourt een high- risk HPV types (16, 18, 31, 33, 35, 39, 45, 51, 52, 56, 58, 59, 66, 68) witho ut diffe renti ation . COMME NT: This speci men was revie wed by a Cytot echno logis t and/o r Patho logis t (as indic ated in this repor t) after evalu ation using the Thinp rep Imagi ng Syste m. CLINI GUY INFOR MATIO N: Menst rual Statu s: LMP (if appli cable ): Clini guy Histo ry/Pr eviou s Pap: Type of Neopl irene (if appli cable ): Signi fican t Clini guy Findi ngs: Other Histo ry: Hormo sohail (if appli cable ): PAP EDUCA HO L NOTE: The Pap Test is a scree saúl test with an inher ent false negat rajan rate. Liqui d-bas ed sampl ing may decre ase, but will not elimi aaron, false negat rajan resul ts. A negat rajan resul t does not precl ude the prese nce and/o r devel opmen t of disea se, since the prese nce of abnor mal cells in the sampl e depen ds on the locat ion of the lesio n and sampl ing techn ique. Bienvenido nued regul ar scree saúl is the best metho d of cance r preve ntion . If repor josé cytol ogic findi ng do not corre late with physi guy and/o r histo rical findi ngs, furth er inves tigat ion is recom brayan d, as clini clark drew nted. Not Available [facility] (Lab) [address], [place], [address], 10/04/2023 11:27:59 10/19/19 25 10/18/2024 IMAGE GUIDE D PAP AND HPV REGAR DLESS image guided Pap, HPV regardless of Pap result SEE RESULT S BELOW CASE REPOR T: Cytol ogy Gynec ologi guy Repor t Case: [id number] Autho richard yañez Provi priscila: Alesha Pierce MD Colle cted: 10/18 1344 Order ing Locat ion: [place] Patho logy Recei magda: 10/19 0133 First Scree n: Acacia Wilkerson , CT Speci men: Michaela hays Pap - Image d, Cervi x STATE MENT OF ADEQU ACY: Satis facto ry for evalu ation Trans forma tion zone compo nent prese nt ----- ----- ----- ----- ----- ----- ----- ----- ----- ----- ----- ----- ----- ----- ----- ----- ----- ---- FINAL DIAGN OSIS: Negat rajan for Intra epith elial Court potts or Devorah montejo ([facility]) . Elect demetrio campoverde d by Acacia Wilkerson , CT on 025 at 1251 CDT ----- ----- ----- ----- ----- ----- ----- ----- ----- ----- ----- ----- ----- ----- ----- ----- ----- ---- HPV RESUL TS: HPV mRNA E6/E7 : No HPV mRNA Detec josé NOTE: This high risk HPV mRNA assay detec ts fourt een high- risk HPV types (16, 18, 31, 33, 35, 39, 45, 51, 52, 56, 58, 59, 66, 68) witho ut diffe renti ation . COMME NT: This speci men was revie wed by a Cytot echno logis t and/o r Patho logis t (as indic ated in this repor t) after evalu ation using the Thinp rep Imagi ng Syste m. CLINI GUY INFOR MATIO N: Menst rual Statu s: LMP (if appli cable ): Clini guy Histo ry/Pr eviou s Pap: Type of Neopl irene (if appli cable ): Signi fican t Clini guy Findi ngs: Other Histo ry: Hormo sohail (if appli cable ): PAP EDUCA HO L NOTE: The Pap Test is a scree saúl test with an inher ent false negat rajan rate. Liqui d-bas ed sampl ing may decre ase, but will not elimi aaron, false negat rajan resul ts. A negat rajan resul t does not precl ude the prese nce and/o r devel opmen t of disea se, since the prese nce of abnor mal cells in the sampl e depen ds on the locat ion of the lesio n and sampl ing techn ique. Bienvenido nued regul ar scree asúl is the best metho d of cance r preve ntion . If repor josé cytol ogic findi ng do not corre late with physi guy and/o r histo rical findi ngs, furth er inves tigat ion is recom brayan d, as clini clark drew nted. Not Available [facility] (Lab) [address], [place], [address], 10/23/2024 13:55:58 02/11/20 23 02/10/2023 MAMMO , scree saúl, bilat eral No observ ation record ed. CH[facility] [address] [address], [place], [address], 03/09/2023 16:27:44 03/17/20 23 03/17/2023 US, pelvi s No observ ation record ed. [email or web address] [facility] [address], [place], [address], 03/17/2023 15:12:04 03/17/20 23 03/17/2023 US, trans vagin al No observ ation record ed. [email or web address] [facility] [address], [place], [address], 03/17/2023 15:11:56 03/17/20 23 03/17/2023 US, pelvi s No observ ation record ed. CHRIS [facility] [address], [place], [address], 03/21/2023 08:13:02 10/06/19 24 10/06/2023 US, trans vagin al No observ ation record ed. [facility] [address], [place], [address], 10/06/2023 14:00:09 10/06/19 24 10/06/2023 US, trans vagin al No observ ation record ed. CHRIS [address] [address], [place], [address], 10/07/2023 11:20:57 02/23/20 24 02/23/2024 MAMMO , scree saúl, bilat eral No observ ation record ed. [facility] [address], [place], [address], 03/20/2024 08:57:43 Result Notes None recorded. Problems Name Problem SNOMED Code Status Onset Date Resolution Date Notes Provider Name and Address Organization Details Recorded Time Postmenopaus al osteopenia 712667230 Active 2022 Cande Rivas MD [address], [place], [address], [facility] 3 12:08:10 Gastroesopha geal reflux disease 288351714 Active 2022 Cande Rivas MD [address], [place], [address], [facility] 3 12:08:21 Hypercholest erolemia 56328497 Active 2022 Cande Rivas MD [address], [place], [address], [facility] 3 12:08:28 Problem Notes None recorded. Procedures Surgical History Date Name Laterality Status Provider Name and Address Organization Details Recorded Time 02/23/20 Date of Last Mammogram completed JAY Simon [facility] 10/18/2024 10:35:12 09/29/19 24 Date of Last Pap Smear completed JAY Simon [facility] 10/18/2024 10:30:20 03/03/20 23 Endometrial Biopsy completed Cande Rivas MD [address], [place], [address], [facility] 03/03/2023 14:23:00 03/18/20 22 Most Recent Bone Density completed [facility] 09/29/2023 09:45:17 07/24/19 17 dilation and curettage completed Cande Rivas MD [address], [place], [address], [facility] 03/03/2023 15:34:24 07/24/[address] [facility] 09/29/2023 09:45:17 07/24/19 15 Date of Last Colonoscopy completed [facility] 09/29/2023 09:45:17 Imaging Results None recorded. Procedure Notes None recorded. Medical Equipment None Reported. Allergies No known drug allergies Medications Name Sig Start Date Stop Date Status Note LastModified by Organization Details LastModified Time hydrocodone 5 mg-acetaminop hen 325 mg tablet TAKE 1 TABLET ORALLY EVERY 6 HOURS NEEDED 09/28 completed Not Available Not Available Not Available rosuvastatin 20 mg tablet TAKE 1 TABLET BY MOUTH EVERY DAY active Not Available Not Available No t Available aspirin active Not Available Not Avail able Not Available calcium active Not Available Not Avail able Not Available Vitamins and Minerals active Not Available Not Available Not Available B12 active Not Available Not Availa ble Not Available Vitals Date Recorded Body height Body mass index (BMI) Body weight Systolic And Diastolic Provider Name and Address Organization Details Last Updated DateTime 09/29/2023 165.1 cm 25 kg/m2 70671.29 g 138/83 mm[Hg] [facility] 09/29/2023 09:45:10 Date Recorded Body height Body mass index (BMI) Body weight Systolic And Diastolic Systolic And Diastolic Provider Name and Address Organization Details Last Updated DateTime 10/18/2024 165.1 cm 25.6 kg/m2 80406.22 g 160/77 mm[Hg] 145/87 mm[Hg] JAY Simon [facility] 10:38:13 Date Recorded Body height Body mass index (BMI) Body weight Systolic And Diastolic Provider Name and Address Organization Details Last Updated DateTime 03/03/2023 165.1 cm 25.1 kg/m2 65660.45 g 138/78 mm[Hg] Nati Martin [facility] 03/03/2023 14:07:52 Social History Question Answer Notes LastModified by Organizat ion Details LastModified Time How Many Years Have You Consumed Alcohol? 25 Information not available 09/29/2023 Are You Blind Or Do You Have Difficulty Seeing? No Information n ot available 09/29/2023 What Is Your Level Of Caffeine Consumption? Occasional Information not available 09/29/2023 How Much Tobacco Do You Chew? None Information not available 09/29/2023 In The 14 Days Before Symptom Onset, Have You Had Close Contact With A Laboratory-confirm ed COVID-19 While That Case Was Ill? No Information n ot available 09/29/2023 In The 14 Days Before Symptom Onset, Have You Had Close Contact With A Person Who Is Under Investigation For COVID-19 While That Person Was Ill? No Information not available 09/29/2023 Have You Been To An Area Known To Be High Risk For COVID-19? No Information not available 09/29/2023 Are You Deaf Or Do You Have Serious Difficulty Hearing? No Information not available 09/29/2023 What Type Of Diet Are You Following? REGULAR Information n ot available 09/29/2023 What Is The Highest Grade Or Level Of School You Have Completed Or The Highest Degree You Have Received? [id number] Information not available 09/29/2023 Are There Any Guns Present In Your Home? Yes Information not available 09/29/2023 Do You Use Protection During Sex? No Information not available 09/29/2023 Do You Use Your Seat Belt Or Car Seat Routinely? Yes Information not available 09/29/2023 Do You Have Smoke And Carbon Monoxide Detectors In Your Home? Yes Information not available 09/29/2023 How Much Tobacco Do You Smoke? No Information not available 09/29/2023 Do You Use Sunscreen Routinely? Yes Information not available 09/29/2023 Have You Used IV Drugs? No Information not available 09/29/2023 Sex: Unknown Functional Status Question Answer Note LastModified by Organizat ion Details LastModified Time Do you use any illicit or recreational drugs? No Information not available 09/29/2023 What is your level of alcohol consumption? Occasional Information not available 09/29/2023 Are you able to walk? 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 Occasional Information not available 09/29/2023 Mental Status Question Answer Note LastModified by Organization D etails LastModified Time Do you feel stressed (tense, restless, nervous, or anxious, or unable to sleep at night)? [id number] Information not available 09/29/2023 Family History Relationship Description Onset Age of this Age Resolved Age Notes LastModified by Organization Details LastModified Time Mother Osteoporosis [email or web address] Not availa ble 09/09/2022 10:10:15 Daughter Multiple sclerosis [email or web address] Not available 2022 10:10:29 Medical History Condition Response Allergies (Food, seasonal, environmental ) N Other N Drug/Latex Allergies/Reactions N Blood Transfusion N Breast Cancer N Dermatologic Disorders Y Lung Disease N Defects or Inherited Disease N Breast Problem N Gestational Diabetes N Hematologic disorders N Anesthesia Complications N History of STI N Deep Vein Thrombosis N Polycystic ovary syndrome N Anxiety Disorder N Autoimmune disease N Arthritis N Polyps N Infertility N Acid Reflux (GERD) Y History of abnormal pap N Cancer N Varicosities N Stroke N Neurologic/Epilepsy N Endometriosis N High Cholesterol Y Fibromyalgia N Headaches N Kidney Disease N Heart Problems N Thyroid Problems N Kidney or Bladder Problems N GI Problems N Eating Disorder N Anemia N Art (IVF or FET) N Psychiatric Illness N Ovarian Cancer N Diabetes N Pulmonary (TB, Asthma) N Hepatitis/Liver Disease N No Past Medical History N Eczema N Urinary Tract Infection N Abuse/Domestic Violence N Asthma N Trauma/Violence N Depression/ depression N Heart Disease N Pre-Eclampsia N Hypertension N Osteoporosis N Thrombophilias N Gynecological History Statement/Question Response Date of Last Mammogram 02/23/2024 On BCP's at Conception? N Y Was last menstrual period normal Y STIs/STDs N HPV Vaccine N Duration of Flow (days) 3 Current Control Method None Age at First Child 26 Date of Last Colonoscopy 07/24/2014 Most Recent Bone Density 03/18/2022 Sexually Active? Y Age of first menstrual cycle 12 Date of Last Pap Smear 09/29/2023 Sexual Problems? N LMP Unknown 07/24/2014 N Obstetrics History GPAL:G 3 P 3 0 0 3 Type Value Full Term 3 Living 3 Total 3 Past Encounters Encounter ID Performer Location Encounter Start Date Encounter Closed Date Diagnosis/Indication Diagnosis SNOMED-CT Code Diagnosis ICD10 Code Diagnosis Note [id number] Cande Rivas MD [facility] [address] [address] 09/09/2022 09:46:54 09/09/2022 12:34:10 Gynecologic examination 64709719 Z01.419 Z11.51 Postmenopa usal osteopenia 869559380 M85.80 [id number] Cande Rivas MD [facility] [address],[place] [address] 03/03/2023 13:44:58 03/03/2023 15:51:13 Postmenopausal bleeding 89590769 N95.0 [id number] Cande Rivas MD [facility] [address],[place] [address] 03/17/2023 13:18:38 03/17/2023 14:17:44 Postmenopausal bleeding 74184031 N95.0 [id number] AYAN ROGERS MD [facility] [address],[place] [address] 09/29/2023 09:37:27 09/29/2023 10:16:25 Gynecologic examination 01327328 Z01.419 [facility] woman [facility]- Cervical cancer screening: Pap smear obtained today due to spotting, will follow up on the results with the patient as they become available- Breast cancer screening: mammogram completed- Colon cancer screening: completed- HPV immunizati on: does not qualify- STD testing: declined- hereditary cancer screening: does not qualify for testing Postmenopa usal bleeding 70449531 N95.0 - 1 mild episode yesterday- likely 2/2 atrophic endometriu m- will evaluate with pelvic US; EMB if lining thickened [id number] Daniele Mccauley MD [facility] [address] [address] 10/06/2023 08:50:02 10/06/2023 09:34:10 Postmenopausal bleeding 36440610 N95.0 [id number] AYAN ROGERS MD [facility] [address] [address] 10/18/2024 10:19:48 10/18/2024 12:01:36 Gynecologic examination 12094072 Z01.419 Z11.51 [facility]- Cervical cancer screening: Pap smear obtained today, will follow up on the results with the patient as they become available- Breast cancer screening: mammogram completed, next scheduled 02/2025- Colon cancer screening: completed- HPV immunizati on: does not qualify- STD testing: declined- hereditary cancer screening: does not qualify for testing Health Concerns Section Related Observation LastModified by Organization Detai ls LastModified Time None Recorded Concern Status LastModified by Organization Details LastModified Time None Recorded Advance Directives Directive None Recorded Payers Insurance Date Sequence Insurance Name Policy Number Policy Bhatia Covered Member ID Bhatia Member ID Guarantor Name 10/21/2024 1 [facility] [employer] - AET (POS II) [id number] Anurag Mayes [id number] Ellenseferino Mayes Notes Date Note Type Note Provider Name and Address Organization Details Recorded Time 03/03/2023 text/html 57yo here for an episode of bright red bleeding on 02/16. Only lasted that one episode. No intercourse prior, no pain. Happened once a year and a half ago also. Did NOT have an ablation in 2017- was supposed to and instead had a HSC D and C because her lining was so thin. [employer] 08/2022 Cande Rivas MD [address], [place], [address], [facility] 03/03/2023 15:36:39 09/29/2023 text/html Presents today for her annual well-woman exam. She reports concerns of vaginal spotting today. Menopause at age ~50yo. Had one episode of spotting last year, US and EMB were wnl at that time. Had one episode of spotting yesterday with wiping, did not need to wear a pad. Denies abnormal vaginal discharge. She is sexually active and denies dyspareunia. She has not noticed any changes or masses in her breasts. Annual mammogram, next this spring. AYAN ROGERS MD [address], [place], [address], [facility] 09/29/2023 10:12:47 10/18/2024 text/html Presents today for her annual well-woman exam. Denies abnormal vaginal discharge. She is sexually active and denies dyspareunia. No PMB. She has not noticed any changes or masses in her breasts. Up to date with mammograms. AYAN ROGERS MD [address], [place], [address], [facility] 10/18/2024 11:57:39 OBGyn Episode Ob Episode Information Episode Created Date Number of Fetuses Patient Bloodtype Patient rh Status Prepregnancy Weight lbs Domestic Partner Domestic Partner Phone Father Name Roof Fitter Status 09/09/19 23 1 CLOSED Fetus Data First Name Last Name Admitted to NICU Weight (g) Sex Living Outcome Pediatric Complications Fetus ID Race Codes Race Delivery Type 1814.36 8 F Full Term [id number] Vaginal Delivery Oh Calculation Initial Oh Date Initial Exam Date Initial Exam Provider Initial Ultrasound Date Last Menstrual Period Date Ultra Sound Weeks Gestation 0 Eighteen To Twenty Week Oh Update Ultra Sound Date Fundal Height At Umbil Quickening Date Ultra Sound Latest Weeks Gestation Final Oh Confirmed By Final Ho Confirmed Date Final Oh Date Ultra Sound Latest Days Gestation 0 0 Menstrual History Last Menstrual Date Menses Monthly On Bcp Conception Prior Menses Frequency Hcg Plus Date Menarche Onset Age Delivery Information Delivery Date Delivery Type Labor Anesthesia Weeks Gestation Incision Type Labor Labor Length Hrs Delivered By Post Complications Tubal Sterilization Discharge Date Comments 5 40 Discharge Information Feeding Method Contraceptive Method Maternal HG B and HCT Levels Ob Episode Information Episode Created Date Number of Fetuses Patient Bloodtype Patient rh Status Prepregnancy Weight lbs Domestic Partner Domestic Partner Phone Father Name Roof Fitter Status 09/09/19 23 1 CLOSED Fetus Data First Name Last Name Admitted to NICU Weight (g) Sex Living Outcome Pediatric Complications Fetus ID Race Codes Race Delivery Type 3373.36 [id number] F Full Term [id number] Vaginal Delivery Oh Calculation Initial Oh Date Initial Exam Date Initial Exam Provider Initial Ultrasound Date Last Menstrual Period Date Ultra Sound Weeks Gestation 0 Eighteen To Twenty Week Oh Update Ultra Sound Date Fundal Height At Umbil Quickening Date Ultra Sound Latest Weeks Gestation Final Oh Confirmed By Final Oh Confirmed Date Final Oh Date Ultra Sound Latest Days Gestation 0 0 Menstrual History Last Menstrual Date Menses Monthly On Bcp Conception Prior Menses Frequency Hcg Plus Date Menarche Onset Age Delivery Information Delivery Date Delivery Type Labor Anesthesia Weeks Gestation Incision Type Labor Labor Length Hrs Delivered By Post Complications Tubal Sterilization Discharge Date Comments 8 40 Discharge Information Feeding Method Contraceptive Method Maternal HG B and HCT Levels Ob Episode Information Episode Created Date Number of Fetuses Patient Bloodtype Patient rh Status Prepregnancy Weight lbs Domestic Partner Domestic Partner Phone Father Name Roof Fitter Status 09/09/19 1 CLOSED Fetus Data First Name Last Name Admitted to NICU Weight (g) Sex Living Outcome Pediatric Complications Fetus ID Race Codes Race Delivery Type 2522.87 [id number] F Full Term [id number] Vaginal Delivery Oh Calculation Initial Oh Date Initial Exam Date Initial Exam Provider Initial Ultrasound Date Last Menstrual Period Date Ultra Sound Weeks Gestation 0 Eighteen To Twenty Week Oh Update Ultra Sound Date Fundal Height At Umbil Quickening Date Ultra Sound Latest Weeks Gestation Final Oh Confirmed By Final Oh Confirmed Date Final Oh Date Ultra Sound Latest Days Gestation 0 0 Menstrual History Last Menstrual Date Menses Monthly On Bcp Conception Prior Menses Frequency Hcg Plus Date Menarche Onset Age Delivery Information Delivery Date Delivery Type Labor Anesthesia Weeks Gestation Incision Type Labor Labor Length Hrs Delivered By Post Complications Tubal Sterilization Discharge Date Comments 2 40 2 vessel umbilical cord Discharge Information Feeding Method Contraceptive Method Maternal HG B and HCT Levels
--- OUTSIDE RECORDS SUMMARY | 2025-02-07 00:21 | XMS_ITS | Clinical Summary ---
Author Organization [facility] Address [facility] [place] [address] Care Team Providers Care Industrial Editor Name Role Phone Unavailable Primary Care Provider Unavailabl e Immunizations Immunization Administration Dates Next Due MODERNA COVID-19 (12+) MRNA, LNP-S, PF, 100 MCG/ 0.5 ML DOSE 08/25/2020,07/28/2020 Social History Tobacco Use Types Packs/Day Years Used Date Smoking Tobacco: Never Assessed Comments Unknown Sex and Gender Information Value Date Recorded Sex Assigned at Not on file Legal Sex Female 6:17 PM CDT Gender Identity Not on file Sexual Orientation Not on file Plan of Treatment Health Maintenance Due Date Last Done Comments Cervical Cancer Screening Pa p Smear (Age 30 to 64) Every 3 Years 1965 Colorectal Cancer Screening Colonoscopy (10 Years) 1965 Annual Physical 1968 Hepatitis C 1983 DTaP, Tdap and Td Vaccines ( 1 - Tdap) 1984 Cervical Cancer Screening Pa p with HPV Testing (Age 30 to 64) Every 5 Years 1995 Cervical Cancer Screening wi th HPV 1995 Mammogram Screening 2005 Pneumococcal Vaccine: 50+ Years (1 of 1 - PCV) 2015 Zoster Vaccines (1 of 2) 2015 COVID-19 Vaccine ( - 2023-2 5 season) 2024 08/25/2020, 07/28/2020 Meningococcal B Vaccine Aged Out No l onger eligible based on patient's age to complete this topic Meningococcal Vaccine Aged Out No rodrigo alyson eligible based on patient's age to complete this topic RSV Immunizations Under 20 Months Aged Out No longer eligible b ased on patient's age to complete this topic
--- OUTSIDE RECORDS SUMMARY | 2025-02-07 00:21 | XMS_ITS | Clinical Summary ---
Author Organization [facility] Address [address] [facility] [place] [address] Care Team Providers Care Wafer Abrading Machine Tender Name Role Phone Tyrese Frost MD Primary Care Provider [phone] Allergies No known active allergies Medications vitamin E 400 unit capsule Take 400 Units by mouth daily. Active cyanocobalamin (VITAMIN B-12) 100 mcg tablet Take 250 mcg by mouth daily. Active cholecalciferol, vitamin D3, 5,000 unit Take 400 Units by mouth daily. Active omeprazole (PriLOSEC) 20 mg Capsule, Delayed Release(E.C.) Take 20 mg by mouth daily. Active TURMERIC-HERBAL COMPLEX NO.278 ORAL Take by mouth. Active rosuvastatin (CRESTOR) 20 mg tablet Take 20 mg by mouth daily. 03/03/2022 Active Active Problems Problem Noted Date Diagnosed Date Hereditary hemochromatosis 06/10/2016 Iron overload 06/03/2016 Encounters Date Type Department Care Team Description 01/14/2025 External Device Data [place] ABSTRACTION Provider, Abstract 12/17/2024 External Device Data [place] ABSTRACTION Provider, Abstract 12/11/2024 External Device Data [place] ABSTRACTION Provider, Abstract 12/10/2024 External Device Data [place] ABSTRACTION Provider, Abstract from Last 3 Months Family History Medical History Relation Name Comments Hypertension Mother Other Mother Relation Name Status Comments Mother Alive Sister Alive Social History Tobacco Use Types Packs/Day Years Used Date Smoking Tobacco: Never Smokeless Tobacco: Never Tobacco Cessation:Counseling Given: Not Answered Alcohol Use Standard Drinks/Week Comments Yes 6 (1 standard drink = 0.6 oz pur e alcohol) Comments No Sex and Gender Information Value Date Recorded Sex Assigned at Not on file Legal Sex Female 8:26 AM CDT Gender Identity Not on file Sexual Orientation Not on file Last Filed Vital Signs Vital Sign Reading Time Taken Comments Blood Pressure 124/85 03/08/2024 8:57 AM CDT Pulse 83 03/08/2024 8:57 AM CDT Temperature 36.4 C (97.5 F) 03/08/2024 8:57 AM CDT Respiratory Rate 15 03/08/2024 8:57 AM CDT Oxygen Saturation 97% 03/08/2024 8:57 AM CDT Inhaled Oxygen Concentration - - Weight 69.3 kg (152 lb 12.8 oz) 03/08/2024 8:57 AM CDT Height 165.1 cm (5' 5) 03/18/2022 8:52 AM CDT Body Mass Index 25.43 03/18/2022 8:52 AM CDT Plan of Treatment Upcoming Encounters Date Type Department Care Team (Late st Contact Info) Description 04/18/2025 12:30 PM CDT Office Visit [facility] Oncology and Hematology - [place] [address] [facility] [address] [place] [address] Orville Reddy MD [address] [facility] [address] [place] [address] Health Maintenance Due Date Last Done Comments Pre-Diabetes and Diabetes Screening 1965 DTAP/TDAP/TD VACCINES (1 - Tdap) 1984 HEPATITIS B VACCINES (1 of 3 - 19+ 3-dose series) 1984 HPV/Cotest (21-29) 1986 HPV/Cotest (30-65) 1995 BREAST CANCER SCREENING 2005 FIT-DNA Q 3 years 2010 FIT/FOBT Q 1 year 2010 Flex Sig/CT Colonography Q 5 years 2010 ZOSTER VACCINE (1 of 2) 2015 COVID-19 Vaccine (3 - 2023- season) 03/24/202408/2020, 07/28/2020 COLORECTAL SCREENING 07/23/2024 07/23/2014 Colorectal Cancer Screening 07/23/2024 INFLUENZA VACCINE (#1) 2025 CERVICAL CANCER SCREENING 09/28/2026 PAP SMEAR 09/28/2026 09/29/2023, 09/09/2022 Insurance Care Teams Wafer Abrading Machine Tender Relationship Specialty Start Date End Date Tyrese Frost MD [address] [place] [address] PCP - General Family Practice 06/03/16
--- OUTSIDE RECORDS SUMMARY | 2025-02-07 00:21 | XMS_ITS | Clinical Summary ---
Author Organization [facility] Address [facility] [place] [address] Care Team Providers Care Hot Strip Mill Inspector Name Role Phone Tyrese Frost MD Primary Care Provider + [phone] Allergies No known active allergies Medications vit D3-vit X-odzieuhhc-tsl s [phone] xyzx-kbc-qu-mg tablet Take by mouth Active cyanocobalamin (Vitamin [...] carrier 10/23/2020 04/0 08/2020 Dyslipidemia 10/23/2020 11/05/2021 Encounters Date Type Department Care Team Description 01/27/2025 Telephone [facility] Cardiology [address] [place] [address] Arian Estes MD from Last 3 Months Medical History Medical History Date Comments Acid reflux Arthritis Family History Medical History Relation Name Comments No Known Problems Mother COPD Sister Emphysema Sister Relation Name Status Comments Father unknown Other Mother Alive Sister Alive Social History Tobacco Use Types Packs/Day Years Used Date Smoking Tobacco: Never Smokeless Tobacco: Never Personal Safety Answer Date Recorded Getting School Help Needed Not on file 07/21 Comments Unknown Sex and Gender Information Value Date Recorded Sex Assigned at Not on file Legal Sex Female 11:53 PM DETAIL SERGEANT Gender Identity Not on file Sexual Orientation Not on file Obstetrics History Last Filed Vital Signs Vital Sign Reading [...] 12/22/2023 8:06 AM CDT Plan of Treatment Health Maintenance Due Date Last Done Comments Cervical Cancer Screening 1965 Colon Cancer Screening-Colonoscopy 1965 Depression Screening 1965 Hepatitis C Screening 1965 DTaP/Tdap/Td Vaccine (1 - Tdap) 1976 Hepatitis B Screening 1983 Regular Well Visit/Exam 18-64 1983 Zoster Vaccine (1 of 2) 2015 Breast Cancer Screening-Mammogram 02/11/2024 02/10/2023 Covid-19 Vaccine (3 - 2023-2 5 season) 2024 08/25/2020, 07/28/2020 Influenza Vaccine (#1) 2025 9, 06/22/2018 Pneumococcal vaccine <65 Aged Out No longer eligible based on patient's age to complete this topic Insurance [facility] Care Teams Hot Strip Mill Inspector Relationship Specialty Start Date End Date Tyrese Frost MD PCP - General Family Medicine 04/30/21
--- NOTE | 2025-02-07 12:05 | WPDHPUPDATE1 ---
History and Physical Update Update Date/Time: 02/07/25 12:05 History and Physical has been reviewed, including an updated exam of the patient. There are NO changes in the patient's condition. Risks, benefits, and alternatives have been discussed and questions answered. Patient agrees to proceed with procedure.
[2025-02-07 12:40] VITALS: BP 135/60; PULSE 74; RESP 14; TEMP 37; O2SAT 99; BMI 25.8
[2025-02-07] MEDS: ACETAMINOPHEN 500 MG TABLET 1000 MG PO (13:15)
[2025-02-07] MEDS: KETOROLAC 15 MG/ML VIAL (*BKC) IV PUSH (13:15)
--- NOTE | 2025-02-07 14:09 | WPDANESEPPF ---
Anes - Initial Pre Proc Eval Procedure: Operation Date: 02/07/25 14:30 Proposed Procedures p Left Trigger Thumb Release - Elijah Franco MD Date/Time: 02/07/25 14:09 Surgeon: Elijah Franco MD Pre Op Diagnosis: left trigger thumb Patient Data Age: 59 Gender: F Height: 1.65 m Weight: 70.4 kg Last Vital Signs Temp 98.6 F 02/07/25 12:40 Pulse 74 02/07/25 12:40 Resp 14 02/07/25 12:40 BP 135/60 02/07/25 12:40 Pulse Ox 99 02/07/25 12:40 O2 Del Method Room Air 02/07/25 12:40 Allergies Allergy/AdvReac Type Severity Reaction Status Date / Time No Known Allergies Allergy Verified 02/07/25 13:19 Home Medications ?Medication ?Instructions ?Recorded ?Confirmed ?Type cholecalciferol (vitamin D3) 25 25 mcg PO DAILY 08/07/20 02/03/25 History mcg (1,000 unit) capsule rosuvastatin 20 mg tablet 20 mg PO HS 05/21/21 02/07/25 History turmeric 100 mg-syeda 150 1 cap PO DAILY 08/27/21 02/03/25 History mg-olive 50 mg-oreg 150 mg-capryl capsule aspirin 81 mg capsule 81 mg PO DAILY 05/17/22 02/03/25 History calcium carbonate (Calcium 500) 500 mg PO DAILY 05/17/22 02/03/25 History cyanocobalamin (vitamin B-12) 3,000 mcg PO DAILY 07/22/24 02/03/25 History 3,000 mcg capsule Patient hx anesthesia problems: none Family hx anesthesia problems: none Results Review: All pre-operative results and documents have been reviewed as part of the pre-operative evaluation. [facility] Past Medical History Medical History Hyperlipidemia Abnormal blood level of iron Acute non-recurrent maxillary sinusitis Cellulitis and abscess of unspecified site Chronic cough Cystitis with hematuria Encounter for screening for malignant neoplasm of cervix Need for tetanus booster Nodule of soft tissue Non-healing skin lesion Screening for colon cancer Spotting BMI 24.0-24.9, adult High triglycerides BMI 23.0-23.9, adult Acid reflux Hemochromatosis Vaginal delivery Surgical History Surgical History Trigger finger, left middle finger Left third trigger finger release June 12, 2023 History of dilation and curettage [place] teeth removed Family History Family History Mother Hypertension Patient's mother is in good health Hyperlipidemia Father No problems noted. Sibling COPD (chronic obstructive pulmonary disease) Emphysema (subcutaneous) (surgical) resulting from a procedure Social History Social History Smoking status: Never smoker Second hand tobacco smoke exposure: No Alcohol intake: current Drinks per week: 3 Alcohol use details: WEEKENDS Substance use: never Substance use type: does not use Do You Feel Safe in your Home?: Yes Lack of Transportation: No Lack of Food: Never True Current Housing: I Have Housing Concerned About Future Housing: No Difficulty Paying Gas/Electric Bills: No Difficulty Paying for Meds: No Currently Unemployed: No Education: Master's Degree or Higher Difficulty w/ Childcare or Family Care: No Living arrangements: with family Occupation/Education: occupation Additional occupation/education comments: dentist Gender identity (if verbalized by the patient): Female Spiritual care concerns: No Anes - Eval Final PreProcedure Day of Procedure 02/07/25 14:09 Patient weight: normal Heart: regular rate and rhythm Lungs: clear to auscultation Airway: Mallampati scale class II Neurological: alert and oriented Last oral intake: >/= 8 hours ASA classification: II Emergent: no Anesthetic plan: proceed Anesthesia type and monitoring: general GIVS and standard monitoring Results Review: All pre-operative results and documents have been reviewed as part of the pre-operative evaluation. Informed Consent: The patient's anesthetic plan and its attendant risks and benefits were discussed with the patient/family/POA. Questions were solicited and answers provided to the satisfaction of the patient/family/POA.
[2025-02-07] MEDS: BUPIVACAINE/EPINEPHRINE 0.5% 50 ML VIAL 10 ML INFILTRATE (15:00)
[2025-02-07 15:13] VITALS: BP 112/52; PULSE 83; RESP 12; O2SAT 98
[2025-02-07] MEDS: LACTATED RINGERS 1,000 ML 30 ML IV CONT ×2 (15:13)
[2025-02-07 15:43] VITALS: BP 123/66; PULSE 79; RESP 16
--- NOTE | 2025-02-07 16:10 | P.OP_ITS ---
Procedure Note - Detailed Date of Procedure 02/07/25 Pre-op Diagnosis left trigger thumb Post-op Diagnosis Same Procedure Performed Trigger thumb release, left. Surgeon Elijah Franco MD Anesthesia General (Sedation) Description of Procedure Sedation with general anesthetic was given. The hand was prepped and draped in the usual sterile fashion with a tourniquet was applied to the arm and well- padded. The limb was exsanguinated and the tourniquet inflated to 250 millimeters of mercury. 0.5% Marcaine with epinephrine was injected at the incision site. 8 milliliters were utilized. A transverse incision was created over the A1 kina subcutaneous dissection was carried out bluntly. The A1 kina was identified and visualized. It was released with the dissection scissors longitudinally. The tourniquet was released. The wound was closed with horizontal mattress Prolene suture 3-0. A sterile bulky dressing was applied. The patient was brought to the recovery room in stable condition. There were no complications. Estimated Blood Loss 1 Drains No Packing No Pathology None sent Complications No immediate complications Condition Stable Disposition PACU [facility] Billing Surgery - Charge Forward: Surgery Billing
[2025-02-07 16:13] VITALS: BP 119/69; PULSE 71; RESP 18
== END 2025-02-07 16:20 | disposition home or self-care (01) ==
PROVIDERS: PCP Family Medicine; Visit Provider Orthopaedic Surgery
PROC: (CPT 26055; principal; 2025-02-07 14:30)
DX: M65.312 Trigger thumb, left thumb (principal)
CPT/HCPCS: 26055; A9270; J1885; J2003; J2250; J2704; J3010; J7120

== ENCOUNTER 2025-03-07 10:49 | Outpatient (CLI) | payer OTHER, SELFPAY ==
--- NOTE | ~2025-03-07 | MM_ITS ---
EXAMINATION: MM screening jhon BI w marianne HISTORY: Screening TECHNIQUE: Craniocaudal and mediolateral oblique 3-D tomosynthesis images were obtained and synthetic 2-D images were generated. CAD analysis was submitted and interpreted. COMPARISON: Comparison to multiple prior studies sequentially, with oldest reviewed study dated 01/2019. BREAST PARENCHYMAL COMPOSITION: Not dense: There are scattered areas of fibroglandular density. FINDINGS: There is no evidence of suspicious mass, calcification, or architectural distortion to sugg est malignancy in either breast. There has been no suspicious interval change. IMPRESSION: 1. No mammographic evidence of malignancy. 2. Recommend routine screening mammography in one year. BI-RADS Category 1: Negative Reviewed, dictated and finalized at location A.
== END 2025-03-07 10:50 | disposition home or self-care (01) ==
LOC: MICIMG 10:50
PROVIDERS: PCP Family Medicine; Visit Provider Obstetrics & Gynecology
DX: Z12.31 Encounter for screening mammogram for malignant neoplasm of breast (principal)
CPT/HCPCS: 77063; 77067

== ENCOUNTER 2025-04-11 08:18 | Outpatient (CLI) | payer OTHER, SELFPAY ==
--- OUTSIDE RECORDS SUMMARY | 2025-04-11 08:20 | XMS_ITS | Clinical Summary ---
Author Organization [facility] Address [facility] [place] [address] Care Team Providers Care Material Handling Supervisor Name Role Phone Tyrese Frost MD Primary Care Provider + [phone] Allergies No known active allergies Medications vit D3-vit N-bbbbzwhis-tur s [phone] jyup-fsf-kb-mg tablet Take by mouth Active cyanocobalamin (Vitamin [...] mg total) by mouth daily 90 tablet 01/27/2025 Active Active Problems Problem Noted Date Diagnosed Date KEATON (obstructive sleep apnea) 03/21/2025 Myalgia 10/28/2022 Mixed hyperlipidemia 11/05/2021 Subclavian artery stenosis, left 10/23/2020 Hereditary hemochromatosis 10/23/2020 Diastolic dysfunction 10/23/2020 Resolved Problems Problem Noted Date Diagnosed Date Resolved Date 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 04/0 08/2020 Dyslipidemia 10/23/2020 11/05/2021 Encounters Date Type Department Care Team Description 03/21/2025 8:00 AM CDT Office Visit [facility] Cardiology [address] [facility] [address] [place] [address] Arian Estes MD Hereditary hemochromatosis (Primary Dx); Subclavian artery stenosis, left; Mixed hyperlipidemia; KEATON (obstructive sleep apnea) 01/27/2025 Telephone [facility] Cardiology [address] [place] [address] Arian Estes MD from Last 3 Months Surgical History Surgery Date Site/Laterality Comments CATARACT EXTRACTION May 2021 Medical History Medical History Date Comments Acid reflux Arthritis Cataract cataract surgery right eye May 25 Family History Medical History Relation Name Comments Arthritis Mother Petty Rodriguez Hyperlipidemia Mother Petty Rodriguez COPD Sister Ofelia Izaguirre Emphysema Sister Ofelia Izaguirre Relation Name Status Comments Father unknown Other Mother Petty Rodriguez Alive Sister Ofelia Izaguirre Alive Social History Tobacco Use Types Packs/Day Years Used Date Smoking Tobacco: Never Smokeless Tobacco: Never Comments Unknown Sex and Gender Information Value Date Recorded Sex Assigned at Not on file Legal Sex Female 11:53 PM UROGYNAECOLOGIST Gender Identity Not on file Sexual Orientation Not on file Obstetrics History Last Filed Vital Signs Vital Sign Reading Time Taken Comments Blood Pressure 134/78 03/21/2025 8:10 AM CDT Pulse 74 03/21/2025 8:10 AM CDT Temperature - - Respiratory Rate - - Oxygen Saturation 97% 03/21/2025 8:10 AM CDT Inhaled Oxygen Concentration - - Weight 70.3 kg (155 lb) 03/21/2025 8:10 AM CDT Height 165.1 cm (5' 5) 03/21/2025 8:10 AM CDT Body Mass Index 25.79 03/21/2025 8:10 AM CDT Plan of Treatment Health Maintenance Due Date Last Done Comments Cervical Cancer Screening 1965 Colon Cancer Screening-Colonoscopy 1965 Depression Screening 1965 Hepatitis C Screening 1965 Hepatitis B Screening 1983 Regular Well Visit/Exam 18-64 1983 Zoster Vaccine (1 of 2) 2015 Breast Cancer Screening-Mammogram 02/11/2024 02/10/2023 Covid-19 Vaccine (2024-2 6 season) 2025 06/16/2021, 08/25/2020, 07/28/2020 Influenza Vaccine (#1) 2025 9, 06/22/2018 DTaP/Tdap/Td Vaccine (2 - Td or Tdap) 11/12/2025 11/13/2015 Pneumococcal vaccine <65 Aged Out No longer eligible based on patient's age to complete this topic Procedures Procedure Name Priority Date/Time Associated Diagnosis Comments POCT LIPID PANEL Routine 03/21/2025 8:13 AM CDT Mixed hyperlipidemia from Last 3 Months Results * POCT lipid panel (03/21/2025 8:13 AM CDT) Cholesterol, POC 149 <200 MG/DL HDL, POC 67 >=40 mg/dL Triglycerides, POC 100 <=149 mg/dL LDL Cholesterol POC 62 <=129 mg/dL Chol/HDL Ratio, POC 0.9 NONE Non-HDL Cholesterol, POC 82 NONE mg/dL Cholesterol Total, POC 149 30 - 199 mg/dL Capillary blood 03/21/2025 8 :13 AM CDT us Arian Estes MD POINT OF CARE TEST ORDERA BLES Final Result from Last 3 Months Insurance [facility] CMR Care Teams Material Handling Supervisor Relationship Specialty Start Date End Date Tyrese Frost MD PCP - General Family Medicine 04/30/21
--- OUTSIDE RECORDS SUMMARY | 2025-04-11 08:20 | XMS_ITS | Encounter Summary ---
Author Organization [facility] [employer] [facility] Address [address] [place] [address] Care Team Providers Care Wash House Supervisor Name Role Phone Tyrese Frost MD Primary Care Provider [phone] Encounter Details Date Type Department Care Team ([facility] Contact Info) Description 04/11/2025 Orders Only [facility] Oncology and Hematology [place] [address] [place] [address] Orville Reddy MD [address] [place], [place] [address] [address] [place] [address] Hereditary hemochromatosis (Primary Dx) Social History Tobacco Use Types Packs/Day Years Used Date Smoking Tobacco: Never Smokeless Tobacco: Never Alcohol Use Standard Drinks/Week Comments Yes 6 (1 standard drink = 0.6 oz pur e alcohol) Comments No Sex and Gender Information Value Date Recorded Sex Assigned at Not on file Legal Sex Female 8:26 AM CDT Gender Identity Not on file Sexual Orientation Not on file documented as of this encounter Plan of Treatment Upcoming Encounters Date Type Department Care Team (Late Contact Info) Description 04/18/2025 12:30 PM CDT Office Visit [facility] Oncology and Hematology [place] [address] [place] [address] Orville Reddy MD [facility] [employer] [address] [place] [address] Scheduled Orders Name Type Priority Associated Diagnoses Orde r Schedule CBC WITH DIFFERENTIAL Lab Routine Hereditary hemochromatosis Expected: 04/11/2025, Expires: 04/11/2026 IRON, TIBC, AND PERCENT SATURATION Lab Routine Hereditary hemochromatosis Expected: 04/11/2025, Expires: 04/11/2026 FERRITIN Lab Routine Hereditary hemochromatosis Expected: 04/11/2025, Expires: 04/11/2026 documented as of this encounter Visit Diagnoses Diagnosis Hereditary hemochromatosis- Primary documented in this encounter Care Teams Wash House Supervisor Relationship Specialty Start Date End Date Tyrese Frost MD [address] [place] [address] PCP - General Family Practice 06/03/16 documented as of this encounter
--- OUTSIDE RECORDS SUMMARY | 2025-04-11 08:20 | XMS_ITS | Clinical Summary ---
Author Organization [facility] Address Count includes the [facility] [place] [address] Care Team Providers Care Signal Operator Linguist Name Role Phone Unavailable Primary Care Provider [...] Vaccines (1 of 2) 2015 COVID-19 Vaccine (3 - 2024-2 6 season) 2025 08/25/2020, 07/28/2020 Meningococcal B Vaccine Aged Out No l onger eligible based on patient's age to complete this topic Meningococcal Vaccine Aged Out No rodrigo alyson eligible based on patient's age to complete this topic RSV Immunizations Under 20 Months Aged Out No longer eligible b ased on patient's age to complete this topic
--- OUTSIDE RECORDS SUMMARY | 2025-04-11 08:20 | XMS_ITS | Clinical Summary ---
Author Organization [facility] Address [address] [place] [address] Care Team Providers Care Electric Blanket Packer Name Role Phone Tyrese Frost MD Primary Care Provider [phone] Allergies No known active allergies Medications vitamin [...] Encounters Date Type Department Care Team Description 04/11/2025 Orders Only [facility] Oncology and Hematology - [place] [address] [facility] [address] [place] [address] Orville Reddy MD Hereditary hemochromatosis (Primary Dx) 02/25/2025 External Device Data [place] ABSTRACTION Provider, Abstract 01/14/2025 External Device Data [place] ABSTRACTION Provider, [...] Description 04/18/2025 12:30 PM CDT Office Visit [facility] Oncology and Hematology - [place] [address] [facility] [address] [place] [address] Orville Reddy MD [address] [facility] [address] [place] [address] Health Maintenance Due Date Last Done Comments DTAP/TDAP/TD VACCINES (1 - Tdap) 1984 HEPATITIS B VACCINES (1 of 3 - 19+ 3-dose series) 1984 HPV/Cotest (21-29) 1986 HPV/Cotest (30-65) 1995 BREAST CANCER SCREENING 2005 FIT-DNA Q 3 years 2010 FIT/FOBT Q 1 year 2010 Flex Sig/CT Colonography Q 5 years 2010 ZOSTER VACCINE (1 of 2) 2015 COLORECTAL SCREENING 07/23/2024 07/23/2014 Colorectal Cancer Screening 07/23/2024 Preventative Visit- Commercial 07/24/2024 09/29/2023 , 09/09/2022 INFLUENZA VACCINE (#1) 2025 COVID-19 Vaccine ( season) 03/24/202508/2020, 07/28/2020 CERVICAL CANCER SCREENING 09/28/2026 PAP SMEAR 09/28/2026 09/29/2023, 09/09/2022 Insurance [facility] [employer] [place] [id number] OPEN CHOICE PPO [facility] [employer] [place] [id number] OPEN CHOICE PPO Care Teams Electric Blanket Packer Relationship Specialty Start Date End Date Tyrese Frost MD [address] [place] [address] PCP - General Family Practice 06/03/16
[2025-04-11 08:29] LABS: Hematocrit 41.2 % (37.0-47.0); Hemoglobin 13.7 g/dL (12.0-15.0); Immature Granulocyte Percent A 0.2 % (0-0.5); Lymphocytes Absolute Auto 1.61 K/mm3 (0.9-3.2); Mean Corpuscular HGB Conc 33.3 g/dl (32-36); Mean Corpuscular Hemoglobin 32.4 pg (26-34); Mean Corpuscular Volume 97.4 fl (80-100); Nucleated Red Blood Cells Absolute Auto 0.000 K/mm3 (0.0-0.012); Nucleated Red Blood Cells Perc 0.0 % (0.0-0.2); Platelet Count Result 200 k/mm3 (150-375); Red Blood Count 4.23 M/mm3 (4.2-5.4); White Blood Count 4.8 K/mm3 (4.5-10.0)
[2025-04-11 15:39] LABS: Ferritin 96.90 ng/mL (11.1-264)
[2025-04-11 17:24] LABS: Iron 96 ug/dL (37-170); Percent Iron Saturation 29 % (20-50)
== END 2025-04-11 08:19 | disposition home or self-care (01) ==
LOC: ANHLAB 08:18
PROVIDERS: PCP Family Medicine; Visit Provider Internal Medicine Hematology & Oncology
DX: E83.110 Hereditary hemochromatosis (principal)
CPT/HCPCS: 36415; 82728; 83540; 83550; 85025